=== PATIENT | female | born 1995 | race African-American/Black ===

== ENCOUNTER 2024-04-11 13:44 | Outpatient (AMB) | payer OTHER, SELFPAY ==
--- NOTE | 2024-04-11 13:51 | A.OFFPC_ITS ---
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 Hydrographer Required: No Is last menstrual period known: Yes Last menstrual period: 03/06/24 Post menopausal: No Patient : No Allergies No Known Allergies Allergy (Verified 04/11/24 13:53) Tobacco use date assessed: 04/11/24 Dental Screening Dental Screen Date: 04/11/24 Did you have a dental visit in the last 12 months?: Yes Did you have a dental problem in the last 6 months where you did not have access to dental care?: No Was dental information given to patient?: Patient has dentist HPI HPI Comments History of Present Illness Details This is a 28-year-old female presenting to [facility]. She says it has been years since she had a primary care provider. Her name is bess Cordova. Patient is from [facility] and moved to the [facility] in 2012. Her sisters and her parents are also in the [facility]. She relocated from [place] to [place] in January. She bought a house with her partner in January. They have 3 children ages 8, 6 and 3 years. She is currently . She took a home test which was positive. She went to [facility] due to pelvic pain. They said her hCG level was rising. Patient says they did not ultrasound. She saw her OBGYN at [facility] after this, and she has a another follow up scheduled 04/19/2024. The pelvic pain subsided. She denies vaginal bleeding. She started to cry when she was talking about this. She tells me that she recently discovered that her partner who is the father of her 3 other children is cheating on her. They have been together since she was 12 years old. She is unsure if she is going to keep the . Patient recently had foot surgery (Dr. Rebolledo at [facility]), and while she is recovering from surgery and moving into the new house she had her 3 children go back to [facility]. She is bringing them back to the [place] at the end of April. Patient says since she was a kid she has had a problem with pain from her left lower back and buttock radiating all the way down her leg. She describes it as severe and characterizes it as nerve pain. It comes and goes. If she has the pain it feels better to apply tight pressure around her leg and keep her knee bent slightly when she is walking. When she has the pain it feels worse when she walks. It feels better if she stops and rests. There is no history of trauma. The patient went to the ER for this 1 time, and they did not ultrasound which was negative for DVT. No swelling or redness or history of clots. She denies numbness or tingling in her legs, weakness in her legs or loss of bowel or bladder control. She used to have a therapist. She lost her brother in 2019 because of a motor vehicle accident. She has a lot going on in her head right now. She is interested in therapy again. Her depression screening is positive. ROS: Constitutional: No unexplained weight loss, fever, chills or night sweats. Neurologic: No unilateral weakness, ataxia, numbness or tingling in the extremities. Musculoskeletal: see HPI Psychiatric: No SI/HI. Physical exam: Constitutional: Alert, in no distress. Neck: Supple, Full range of motion. No lymphadenopathy. No palpable thyroid masses. Respiratory: Clear to auscultation. Cardiovascular: S1 S2 regular. No murmurs Neurologic: No focal neurological deficits. Abdomen: Soft, nontender, no palpable masses. Musculoskeletal: Patient has mild left leg pain with the straight leg raise. She also has pain that radiates down her left leg with lumbar flexion. Lower extremity strength 5/5, symmetric patellar reflexes, no foot drops, normal gait. Full range of motion of the lumbar spine. No midline spinal tenderness. Extremities: Warm and well perfused. No clubbing, cyanosis or edema. 3+ peripheral pulses bilaterally. Psychiatric: Cooperative, tearful [facility] Medical History (Updated 04/11/24 @ 16:17 by ANN Avalos) Low back pain radiating to left leg Symptoms of depression Back ache IBS (irritable bowel syndrome) Anxiety Surgical History (Updated 04/11/24 @ 16:11 by ANN Avalos) History of liposuction of abdomen H/O foot surgery Family History (Updated 04/11/24 @ 14:06 by Daniela Cummings) Family/Other FH: mental illness Maternal Grandfather Asthma Mother High blood pressure Thyroid disorder Father High blood pressure Diabetes Thyroid disorder Paternal Grandmother High blood pressure High cholesterol Social History Housing: House Patient Tobacco Use Status: Never used Tobacco e-Cigarette/Vaping Use: Never Used Second Hand Smoke Exposure: No service: No Current occupational status: employed 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 1. Little interest or pleasure in doing things: more than half the days 2. Feeling down, depressed, or hopeless: more than half the days 3. Trouble falling or staying asleep, or sleeping too much: more than half the days 4. Feeling tired or having little energy: nearly every day 5. Poor appetite or overeating: nearly every day 6. Feeling bad about yourself - or that you are a failure or have let yourself or your family down: nearly every day 7. Trouble concentrating on things, such as reading the newspaper or watching television: nearly every day 8. Moving or speaking so slowly that other people could have noticed. Or the opposite - being so fidgety or restless that you have been moving around a lot more than usual: several days 9. Thoughts that you would be better off or of hurting yourself in some way: several days Total score: 20 Source: Developed by Drs. Stef Toussaint, Bhavna Jim, Osman Austin and colleagues, with an educational pamella from [employer]. Thrive Questionnaire Date Thrive assessed: 04/11/24 I am a: Patient What is your living situation today?: I have a steady place to live Within the past 12 months, did the food you bought not last and you didn't have the money to get more?: Never true Within the past 12 months, did you worry whether your food would run out before you got money to buy more?: Sometimes True Do you have trouble paying for medicines?: No Do you have trouble getting transportation to medical appointments?: No Do you have trouble paying your heating and electricity bill?: Yes Do you have trouble taking care of your child, family member or friend?: No Do you have trouble with day-to-day activities such as bathing, preparing meals, shopping, managing finances, etc.?: No Are you currently unemployed and looking for a job?: No Are you interested in more education?: Yes Please select the resources that you would like help with: Education Currently or been in a relationship where the following occur: No concerns reported THRIVE Score: 2 AUDIT C Alcohol Use Questionnaire (AUDIT-C) 1. How often do you have a drink containing alcohol?: Monthly or less 2. How many drinks containing alcohol do you have on a typical day when you are drinking?: 1 or 2 3. How often do you have six or more drinks on one occasion?: Less than monthly Total Score: 2 Score Reviewed/Action Taken: Yes MELODIE-7 AMB Questionnaire MELODIE-7 Date MELODIE - 7 assessed: 04/11/24 Feeling nervous, anxious, or on edge: 2 = More than half the days Not being able to stop or control worryin = More than half the days Worrying too much about different things: 2 = More than half the days Trouble relaxin = Nearly every day Being so restless that it is hard to sit still: 2 = More than half the days Becoming easily annoyed or irritable: 2 = More than half the days Feeling afraid as if something awful might happen: 1 = Several days Total MELODIE-7 score (0-4 normal; 5-9 mild; 10-14 moderate; 15-21 severe): 14 Source: Developed by Drs. Stef Toussaint, Bhavna Jim, Osman Austin and colleagues, with an educational pamella from [employer]. MELODIE-7 Assessment Billing MELODIE-7 Assessment Tool: MELODIE-7 Assessment 90114 ACT Questionnaire In the past 4 weeks, how much of the time did your asthma keep you from getting as much done at work, school or at home?: All of the time During the past 4 weeks, how often have you had shortness of breath?: Once a day During the past 4 weeks, how often did your asthma symptoms wake you up at night or earlier than usual in the morning?: 2-3 nights a week During the past 4 weeks, how often have you had to use your rescue inhaler or nebulizer medication?: More than 3 times per day How would you rate your asthma control during the past 4 weeks?: Poorly controlled Score: 8 Physical exam (Primary Care) Vital Signs: Last Vital Signs Temp 98.5 F 04/11/24 14:00 Pulse 76 04/11/24 14:00 Resp 16 04/11/24 14:00 BP 102/58 L 04/11/24 14:00 Pulse Ox 98 04/11/24 14:00 Oxygen Delivery Method Room Air 04/11/24 14:00 BMI result Body Mass Index 31.4 Tobacco/Smoking Status: Tobacco use Status Tobacco use date assessed 04/11/24 04/11/24 13:57 Patient Tobacco Use Status Never used Tobacco 04/11/24 13:57 e-Cigarette/Vaping Use Never Used 04/11/24 13:57 PHQ-9: PHQ-9 Score PHQ-9: Total score 20 04/11/24 14:23 Thrive Assessment: Date of Thrive Assessment Date Thrive assessed 04/11/24 04/11/24 14:09 Currently or been in a relationship where the following occur: No concerns reported Assessment and Plan Assessment & Plan (1) : Code(s): Z34.90 - Encounter for supervision of normal , unspecified, unspecified trimester Plan: Requested records from [facility]. Patient has a follow up with her OBGYN at [facility] on 04/19/2024. (2) Low back pain radiating to left leg: Code(s): M54.50 - Low back pain, unspecified; M79.605 - Pain in left leg Plan: Defer x-ray at this time due to . We will proceed with trial of physical therapy for suspected sciatica. She can take Tylenol as needed for pain but she would minimize any medications during . We can discuss MRI if she does not respond to physical therapy and she wants to proceed with this, but it may be more reasonable to defer this until after . (3) Symptoms of depression: Code(s): R45.89 - Other symptoms and signs involving emotional state Plan: Patient is referred to behavioral health for therapy. (4) Anxiety: Code(s): F41.9 - Anxiety disorder, unspecified Plan: Patient referred to behavioral health for anxiety. Plan She will have fasting lab work completed and follow up in April for a physical exam before she leaves the country. Orders: Orders Complete Blood Count no Diff Today F41.9 - Anxiety disorder, unspecified, Z13.6 - Encounter for screening for cardiovascular disorders TSH reflex Free T4 Today F41.9 - Anxiety disorder, unspecified, Z13.6 - Encounter for screening for cardiovascular disorders Lipid Panel Today E78.5 - Hyperlipidemia, unspecified, F41.9 - Anxiety disorder, unspecified, Z13.6 - Encounter for screening for cardiovascular disorders Comprehensive Met. Panel Today F41.9 - Anxiety disorder, unspecified, Z13.6 - Encounter for screening for cardiovascular disorders PT Evaluation and Treatment Today M54.50 - Low back pain, unspecified, M79.605 - Pain in left leg Referrals Psychology Referral F41.9 - Anxiety disorder, unspecified, R45.89 - Other symptoms and signs involving emotional state Coding Level of Care Code New Pt Level 4 (55725) Complex EM visit Add On G2211 Diagnoses Z34.90 Low back pain radiating to left leg M54.50; M79.605 Symptoms of depression R45.89 Anxiety F41.9 Additional Codes MELODIE-7 Assessment Billing - MELODIE-7 Assessment Tool: MELODIE-7 Assessment 66830 ([id number])
[2024-04-11 14:00] VITALS: BP 102/58; PULSE 76; RESP 16; TEMP 36.9; O2SAT 98; BMI 31.4
== END 2024-04-11 14:48 | disposition home or self-care (01) ==
PROVIDERS: PCP Physician Assistant Medical; Visit Provider Physician Assistant Medical
DX: Z34.90 Encounter for supervision of normal pregnancy, unspecified, unspecified trimester (principal); M54.50 Low back pain, unspecified; M79.605 Pain in left leg; R45.89 Other symptoms and signs involving emotional state; F41.9 Anxiety disorder, unspecified

== ENCOUNTER → 2024-04-11 13:44 | Outpatient (BNVA) | payer OTHER, SELFPAY | PROVIDERS: PCP Physician Assistant Medical; Visit Provider Physician Assistant Medical | DX: O99.891 Other specified diseases and conditions complicating pregnancy (principal); M54.50 Low back pain, unspecified; M79.605 Pain in left leg; O26.899 Other specified pregnancy related conditions, unspecified trimester; R45.89 Other symptoms and signs involving emotional state; O99.340 Other mental disorders complicating pregnancy, unspecified trimester; F41.9 Anxiety disorder, unspecified; Z3A.00 Weeks of gestation of pregnancy not specified | CPT/HCPCS: 96127; 96160; 99202 ==

== ENCOUNTER 2024-05-02 08:35 | Outpatient (AMB) | payer OTHER, SELFPAY ==
--- NOTE | 2024-05-02 08:45 | MHC.PC.OV ---
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 She is starting therapy with [email or web address] next Monday. She is doing a little better. She ended up terminating her because of the situation with her partner. She got a job for [employer] that she is going to be starting soon. She is taking a trip out of the country to get her children. Things with her partner are still difficult, but they are not openly arguing. She endorses transient thoughts of self-harm. This happens once a week. She has no plan to harm herself or history of self-harm. She always thinks about her kids and her sister, and she would never hurt herself because of them. She is starting physical therapy for her back pain when she returns from her trip. She declines influenza vaccine. Patient is referred for an eye exam. She has difficulty reading up close which has been going on for years. She does not have glasses or contacts. She says her eyes get fatigued which triggers headaches. The patient endorses acid reflux and vomiting for the past 5-10 years. This happens every day. Coffee makes it worse. She eats a lot of spicy food. It also is worse when she lays down at night. She tried Tums last week which helped for a few hours. She drinks 2 alcoholic beverages once or twice per month. She does not smoke. There is no family history of gastrointestinal malignancy. She denies hematemesis, melena, diarrhea, unexplained weight loss and decreased appetite. ROS: Constitutional: No unexplained weight loss, fever, chills or night sweats. Eyes: No eye pain, double vision, vision loss, eye redness or discharge. ENT: No hearing loss, sneezing, congestion, runny nose or sore throat. Respiratory: No shortness of breath, cough or sputum production. Cardiovascular: No chest pain, chest pressure or chest discomfort. No palpitations or pedal edema. Gastrointestinal: see HPI Genitourinary: No dysuria, hematuria, urinary frequency. Neurologic: No dizziness, syncope, unilateral weakness, ataxia, numbness or tingling in the extremities. Musculoskeletal: No muscle pain, back pain, joint pain or swelling. Hematologic/Lymphatics: No bleeding or bruising. No painful lymph nodes. Skin: No rash or itching. Endocrine: No cold or heat intolerance. No polyuria or polydipsia. Psychiatric: see HPI Physical exam: Constitutional: Alert, in no distress. Head: Normocephalic. Eyes: Pupils are equal, round and reactive to light. Extraocular muscles intact. Ear, Nose and Throat: Canals clear. TMs normal. Normal nasal mucosa. No nasal discharge. No oral lesions. Neck: Supple, Full range of motion. No lymphadenopathy. No palpable thyroid masses. Respiratory: Clear to auscultation. Cardiovascular: S1 S2 regular. No murmurs. Gastrointestinal: Abdomen soft, mild epigastric tenderness, non-distended. Normal bowel sounds. No palpable masses. No rebound or guarding. Genitourinary: No costovertebral angle tenderness. Neurologic: No focal neurological deficits. Symmetric patellar reflexes. Moves all extremities spontaneously. Sensation intact bilaterally. Skin: No rashes or lesions. Musculoskeletal: No gross deformities. Normal range of motion. Extremities: Warm and well perfused. No clubbing, cyanosis or edema. 3+ peripheral pulses bilaterally. Psychiatric: Normal mood and affect [facility] Medical History (Updated 05/02/24 @ 09:27 by ANN Avalos) Routine physical examination Vomiting GERD (gastroesophageal reflux disease) Low back pain radiating to left leg Symptoms of depression Back ache IBS (irritable bowel syndrome) Anxiety Surgical History (Updated 04/11/24 @ 16:11 by ANN Avalos) History of liposuction of abdomen H/O foot surgery Family History (Updated 05/02/24 @ 09:05 by ANN Avalos) Family/Other FH: mental illness Maternal Grandfather Asthma Mother High blood pressure Thyroid disorder Father High blood pressure Diabetes Thyroid disorder Testicular cancer Paternal Grandmother High blood pressure High cholesterol Social History Housing: House Patient Tobacco Use Status: Never used Tobacco e-Cigarette/Vaping Use: Never Used Second Hand Smoke Exposure: No service: No Current occupational status: employed Current occupation: [employer] Current occupational exposures/hazards: No Cognitive needs: No Hearing needs: No Vision needs: No Questionnaire PHQ-9 Over the last 2 weeks, how often have you been bothered by any of the following problems? 1. Little interest or pleasure in doing things: more than half the days 2. Feeling down, depressed, or hopeless: more than half the days 3. Trouble falling or staying asleep, or sleeping too much: several days 4. Feeling tired or having little energy: more than half the days 5. Poor appetite or overeating: nearly every day 6. Feeling bad about yourself - or that you are a failure or have let yourself or your family down: more than half the days 7. Trouble concentrating on things, such as reading the newspaper or watching television: several days 8. Moving or speaking so slowly that other people could have noticed. Or the opposite - being so fidgety or restless that you have been moving around a lot more than usual: more than half the days 9. Thoughts that you would be better off or of hurting yourself in some way: several days Total score: 16 Depression Screening Interpretation: Positive Depression Screening Done: Yes 57535 - PHQ-9 Billing: Yes Source: Developed by Drs. Stef Toussaint, Bhavna Jim, Osman Austin and colleagues, with an educational pamella from [email or web address]. Thrive Questionnaire Date Thrive assessed: 04/11/24 I am a: Patient What is your living situation today?: I have a steady place to live Within the past 12 months, did the food you bought not last and you didn't have the money to get more?: Sometimes True Within the past 12 months, did you worry whether your food would run out before you got money to buy more?: Sometimes True Do you have trouble paying for medicines?: No Do you have trouble getting transportation to medical appointments?: No Do you have trouble paying your heating and electricity bill?: No Do you have trouble taking care of your child, family member or friend?: No Do you have trouble with day-to-day activities such as bathing, preparing meals, shopping, managing finances, etc.?: No Are you currently unemployed and looking for a job?: No Are you interested in more education?: Yes Please select the resources that you would like help with: Childcare Currently or been in a relationship where the following occur: Controlled Emotionally THRIVE Score: 3 AUDIT C Alcohol Use Questionnaire (AUDIT-C) 1. How often do you have a drink containing alcohol?: Monthly or less 2. How many drinks containing alcohol do you have on a typical day when you are drinking?: 1 or 2 3. How often do you have six or more drinks on one occasion?: Less than monthly Total Score: 2 MELODIE-7 AMB Questionnaire MELODIE-7 Date MELODIE - 7 assessed: 04/11/24 Feeling nervous, anxious, or on edge: 2 = More than half the days Not being able to stop or control worryin = More than half the days Worrying too much about different things: 2 = More than half the days Trouble relaxin = More than half the days Being so restless that it is hard to sit still: 2 = More than half the days Becoming easily annoyed or irritable: 2 = More than half the days Feeling afraid as if something awful might happen: 2 = More than half the days Total MELODIE-7 score (0-4 normal; 5-9 mild; 10-14 moderate; 15-21 severe): 14 Source: Developed by Drs. Stef Toussaint, Bhavna Jim, Osman Austin and colleagues, with an educational pamella from [email or web address]. MELODIE-7 Assessment Billing MELODIE-7 Assessment Tool: MELODIE-7 Assessment 40315 Physical exam (Primary Care) Vital Signs: Last Vital Signs Pulse 71 05/02/24 08:46 BP 98/62 05/02/24 08:46 Pulse Ox 99 05/02/24 08:46 Oxygen Delivery Method Room Air 05/02/24 08:46 BMI result Body Mass Index 32.1 Tobacco/Smoking Status: Tobacco use Status Tobacco use date assessed 04/11/24 05/02/24 08:48 Patient Tobacco Use Status Never used Tobacco 05/02/24 08:48 e-Cigarette/Vaping Use Never Used 05/02/24 08:48 PHQ-9: PHQ-9 Score PHQ-9: Total score 16 05/02/24 08:48 Depression Screening Interpretation: Positive Thrive Assessment: Date of Thrive Assessment Date Thrive assessed 04/11/24 05/02/24 08:48 Currently or been in a relationship where the following occur: Controlled Emotionally Coding Level of Care Code Est Pt Level 4 (72754) Est Pt Prev Care 18-39y(52400) Diagnoses Routine physical examination Z00.00 GERD (gastroesophageal reflux disease) K21.9 Vomiting R11.10 Low back pain radiating to left leg M54.50; M79.605 Symptoms of depression R45.89 Anxiety F41.9 Additional Codes MELODIE-7 Assessment Billing - MELODIE-7 Assessment Tool: MELODIE-7 Assessment 71902 ([id number]) Assessment & Plan Assessment & Plan (1) Routine physical examination: Code(s): Z00.00 - Encounter for general adult medical examination without abnormal findings Category: Medical Plan: Patient is seen today for a routine physical. As part of this visit we reviewed the following issues, which are considered and essential part of preventative health in this age group: - Breast Cancer screening - Annual Director Pharmaceutical exam - Blood pressure screening - Cholesterol screening - Osteoporosis prevention including calcium/vitamin D intake, weight bearing exercise & smoking cessation - Nutritional and exercise counseling - Counseling of injury prevention including fire prevention, smoke alarms and seat belt usage - Screening for depression - Prevention of and/or testing for infectious diseases - Education about skin cancer - Recommendations about immunizations - Recommendation of an eye exam - Screening for substance abuse (2) GERD (gastroesophageal reflux disease): Code(s): K21.9 - Gastro-esophageal reflux disease without esophagitis Category: Medical Plan: Avoid spicy and acidic foods. Avoid eating close to bedtime. Avoid alcohol and NSAIDs. Trial of omeprazole 20 mg every morning for 2 weeks. Refer to Gastroenterology. (3) Vomiting: Code(s): R11.10 - Vomiting, unspecified Category: Medical Plan: See #2. Check labs. Abdominal ultrasound ordered to rule out gallstones. Refer to Gastroenterology. (4) Low back pain radiating to left leg: Code(s): M54.50 - Low back pain, unspecified; M79.605 - Pain in left leg Category: Medical Plan: She will start physical therapy when she returns from her trip and follow up in 6 weeks for re-evaluation. (5) Symptoms of depression: Code(s): R45.89 - Other symptoms and signs involving emotional state Category: Medical Plan: She continues to decline medications. She is starting therapy next Monday with [facility]. (6) Anxiety: Code(s): F41.9 - Anxiety disorder, unspecified Category: Medical Plan: See #5. Plan Follow up in 6 weeks to recheck back pain, depression and gastro symptoms. Orders: Orders US abdomen complete Today R10.816 - Epigastric abdominal tenderness, R11.10 - Vomiting, unspecified Lipase Today K21.9 - Gastro-esophageal reflux disease without esophagitis, R11.10 - Vomiting, unspecified Referrals Optometry Referral Z01.00 - Encounter for examination of eyes and vision without abnormal findings Gastroenterology Referral K21.9 - Gastro-esophageal reflux disease without esophagitis, R11.10 - Vomiting, unspecified Medications: New omeprazole magnesium (Prilosec OTC) 20 mg PO DAILY 14 tabs 0RF
[2024-05-02 08:46] VITALS: BP 98/62; PULSE 71; O2SAT 99; BMI 32.1
== END 2024-05-02 09:22 | disposition home or self-care (01) ==
PROVIDERS: PCP Physician Assistant Medical; Visit Provider Physician Assistant Medical
DX: Z00.00 Encounter for general adult medical examination without abnormal findings (principal); K21.9 Gastro-esophageal reflux disease without esophagitis; R11.10 Vomiting, unspecified; M54.50 Low back pain, unspecified; M79.605 Pain in left leg; R45.89 Other symptoms and signs involving emotional state; F41.9 Anxiety disorder, unspecified

== ENCOUNTER → 2024-05-02 08:35 | Outpatient (BNVA) | payer OTHER, SELFPAY | PROVIDERS: PCP Physician Assistant Medical; Visit Provider Physician Assistant Medical | DX: Z00.00 Encounter for general adult medical examination without abnormal findings (principal); K21.9 Gastro-esophageal reflux disease without esophagitis; R11.10 Vomiting, unspecified; M54.50 Low back pain, unspecified; M79.605 Pain in left leg; R45.89 Other symptoms and signs involving emotional state; F41.9 Anxiety disorder, unspecified | CPT/HCPCS: 96127; 99212; 99395 ==

== ENCOUNTER 2024-05-09 08:14 | Outpatient (REF) | payer OTHER, SELFPAY ==
[2024-05-09 10:18] LABS: Hematocrit 36.8 % (37.0-47.0); Hemoglobin 12.3 g/dl (12.0-16.0); Mean Corpuscular HGB Conc 33.4 g/dl (31.0-35.0); Mean Corpuscular Hemoglobin 27.6 pg (27.0-33.0); Mean Corpuscular Volume 82.7 fL (80.0-98.0); Mean Platelet Volume 10.8 fL (9.4-12.3); Platelet Count 334 X10*3/uL (160-400); Red Blood Count 4.45 X10*6/uL (4.20-5.50); Red Cell Distribution Width 13.1 % (11.0-16.0)
[2024-05-09 10:47] LABS: Alanine Aminotransferase 14 U/L (0-31); Albumin Level 4.2 g/dL (3.5-5.0); Alkaline Phosphatase 38 U/L (39-117); Anion Gap 10 (12-20); Aspartate Amino Transferase 24 U/L (5-31); Bilirubin Total 0.4 mg/dL (0.0-1.0); Blood Urea Nitrogen 7 mg/dL (9-16); Calcium 9.5 mg/dL (8.4-10.2); Carbon Dioxide 27 mmol/L (22-29); Chloride 106 mmol/L (96-108); Cholesterol 205 mg/dL (<200); Estimated Glomerular Filt Rate > 60; Glucose Random 89 mg/dL (60-115); HDL Cholesterol 59 mg/dL (>40); LDL Cholesterol Calculated 124 mg/dL (<100); Lipase 16 U/L (8-78); Potassium 3.9 mmol/L (3.3-5.1); Sodium 139 mmol/L (135-145); Total Protein 7.1 g/dL (6.5-8.0); Triglycerides 112 mg/dL (<150)
[2024-05-09 11:06] LABS: TSH reflex Free T4 0.86 uIU/mL (0.32-4.0)
== END 2024-05-09 08:15 | disposition home or self-care (01) ==
LOC: HO.HMGCLDS 08:14
PROVIDERS: PCP Physician Assistant Medical; Visit Provider Physician Assistant Medical
DX: Z13.6 Encounter for screening for cardiovascular disorders (principal); F41.9 Anxiety disorder, unspecified; E78.5 Hyperlipidemia, unspecified; K21.9 Gastro-esophageal reflux disease without esophagitis; R11.10 Vomiting, unspecified
CPT/HCPCS: 36415; 80053; 80061; 83690; 84443; 85027

== ENCOUNTER 2024-05-31 09:53 | Outpatient (REF) | payer OTHER, SELFPAY ==
--- NOTE | ~2024-05-31 | US_ITS ---
EXAMINATION: US ABDOMEN COMPLETE CLINICAL INFORMATION: Vomiting, unspecified. COMPARISON: None available. TECHNIQUE: Real-time imaging of the abdominal viscera. FINDINGS: PANCREAS: Normal. ABDOMINAL AORTA: The proximal, mid, and distal segments are normal in caliber. INFERIOR VENA CAVA: Visualized portions are normal. LIVER: Normal. The liver is normal in size. The liver contour is normal. Parenchymal echogenicity is normal. No focal hepatic lesion. There is no intrahepatic biliary duct dilatation seen. GALLBLADDER: The gallbladder is physiologically distended. Multiple mobile gallstones are present. No evidence of gallbladder wall thickening or pericholecystic fluid. COMMON BILE DUCT: Normal in caliber measuring 0.24 cm in diameter. RIGHT KIDNEY: Normal. No hydronephrosis. No renal calculi or focal parenchymal lesions. The kidney measures 9.0 cm in maximum dimension. LEFT KIDNEY: Normal. No hydronephrosis. No renal calculi or focal parenchymal lesions. The kidney measures 8.6 cm in maximum dimension. SPLEEN: Normal. The spleen measures 7.3 cm in maximum dimension. FREE FLUID: None. US/US abdomen complete IMPRESSION: 1. Cholelithiasis without ultrasound evidence of acute cholecystitis. 2. Ultrasound otherwise normal. Electronically signed by: Emilia Reeves MD 07/07/2024 11:18 AM JAYLIN
== END 2024-05-31 09:54 | disposition home or self-care (01) ==
LOC: HO.HMGCX 09:53
PROVIDERS: PCP Physician Assistant Medical; Visit Provider Physician Assistant Medical
DX: R11.10 Vomiting, unspecified (principal); R10.816 Epigastric abdominal tenderness
CPT/HCPCS: 76700

== ENCOUNTER 2024-07-18 10:00 | Outpatient (RCR) | payer OTHER, SELFPAY ==
--- NOTE | 2024-05-31 14:59 | MHC.PT.EP ---
[facility] [place] Office [place] Office [place] Office [address] Ted Sharma [address] [phone] F: [phone] F: [phone] F: [phone] F: [phone] Physical Therapy Plan of Care Date of Evaluation: 05/31/24 Date of Surgery: Diagnosis: low back pain radiating to L leg. Assessment: Patient is a 28 year old R handed female who presents with s/s consistent with low back pain. She does not work but is starting a job next Monday. Patient past medical history includes R foot fracture that may have impacted back pain 1 year ago. Current impairments include pain, posture, ROM, strength, activity tolerance and functional mobility. Functional limitations include decreased ability to walk, stand, bend, sleep, lift, carry, drive and sit for prolonged periods of time. Patient is motivated with good rehab potential. Skilled PT will address impairments and functional limitations in order to achieve goals. Frequency and Duration: The patient will be seen 1x/week for 6 weeks Short Term Goals: I with HEP - 2 weeks AROM rotation 100% and pain free - 3 weeks Symmetrical gait mechanics, (-) trendelenberg - 3 weeks Symmetrical iliac crest positions - 3 weeks Curing Supervisor Goals: Max pain with ADLs 2/10 - 6 weeks Oswestry 14% or less -6 weeks Hip strength 4+/5 grossly - 6 weeks Treatment Plan: Modalities to reduce pain, spasms and effusion. Manual therapy to restore motion and function. Therapeutic exercise to improve strength and flexibility. Neuromuscular re-education for posture and balance. Therapeutic activities to return to functional activities of daily living. Electronically signed by: Jose Daniel Saldana, PT Please sign and return to therapist. Thank you for your referral.
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
== END 2025-01-24 09:41 | disposition home or self-care (01) ==
LOC: HO.PTCHIC 10:00
PROVIDERS: PCP Physician Assistant Medical; Visit Provider Physician Assistant Medical
DX: M54.50 Low back pain, unspecified (principal); M79.605 Pain in left leg
CPT/HCPCS: 97110; 97140; 97161

== ENCOUNTER 2024-07-30 10:42 | Outpatient (AMB) | payer OTHER, SELFPAY ==
--- NOTE | 2024-07-30 10:43 | MHC.OFFVIS ---
Intake Visit Reasons: Calculus of GB Intake Note: Patient referred by Carolina YUEN for calculus of gallbladder. Patient c/o: RUQ pain. On and off pain that started about 1yr. Nausea, diarrhea. Cell Inspector Required: No Accompanied by: Self / Same As Patient Allergies No Known Allergies Allergy (Verified 07/30/24 10:48) HPI Comments Details: Patient presents with a longstanding history of biliary colic. She has symptoms of epigastric right upper quadrant pain radiating around to her back. Recent workup including sonogram demonstrates significant cholelithiasis. Patient was mother of 3. She otherwise tolerating a diet. She has regular bowel habits. She has never been jaundiced before. She occasionally has associated nausea and vomiting when abdominal symptoms come on. Chart was reviewed and patient evaluated [facility] Medical History Cholelithiases Routine physical examination Vomiting GERD (gastroesophageal reflux disease) Low back pain radiating to left leg Symptoms of depression Back ache IBS (irritable bowel syndrome) Anxiety Surgical History History of liposuction of abdomen H/O foot surgery Family History Family/Other FH: mental illness Maternal Grandfather Asthma Mother High blood pressure Thyroid disorder Father High blood pressure Diabetes Thyroid disorder Testicular cancer Paternal Grandmother High blood pressure High cholesterol Social History Housing: House Patient Tobacco Use Status: Never used Tobacco e-Cigarette/Vaping Use: Never Used Second Hand Smoke Exposure: No service: No Current occupational status: employed 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 Current occupational exposures/hazards: No Cognitive needs: No Hearing needs: No Vision needs: No Physical Exam Eyes Other: Anicteric Chest Other: Chest breath sounds bilaterally, HS 1 in 2 GI Other: Abdomen moderately corpulent, Striae, soft, benign Assessment & Plan Assessment & Plan (1) Recurrent biliary colic: Code(s): K80.50 - Calculus of bile duct without cholangitis or cholecystitis without obstruction Category: Surgical (2) Cholelithiases: Code(s): K80.20 - Calculus of gallbladder without cholecystitis without obstruction Category: Surgical Plan Risks, benefits, and alternatives laparoscopic possible open cholecystectomy reviewed with the patient and included but not limited to bleeding, infection, recurrence of symptoms, numbness, pain, scarring, bowel or bile duct injury or leak and the patient wishes to proceed. All questions answered. Arrangements were made for this on a day which is convenient for her. Coding Level of Care Code New Pt Level 5 (34163) Diagnoses Recurrent biliary colic K80.50 Cholelithiases K80.20
== END 2024-07-30 10:53 | disposition home or self-care (01) ==
PROVIDERS: PCP Physician Assistant Medical; Referring Provider Physician Assistant Medical; Visit Provider Surgery
DX: K80.50 Calculus of bile duct without cholangitis or cholecystitis without obstruction (principal); K80.20 Calculus of gallbladder without cholecystitis without obstruction
CPT/HCPCS: 99204

== ENCOUNTER → 2024-07-30 10:42 | Outpatient (BNVA) | payer OTHER, SELFPAY | PROVIDERS: PCP Physician Assistant Medical; Referring Provider Physician Assistant Medical; Visit Provider Surgery | DX: K80.20 Calculus of gallbladder without cholecystitis without obstruction (principal); K80.50 Calculus of bile duct without cholangitis or cholecystitis without obstruction; R10.11 Right upper quadrant pain; R10.13 Epigastric pain | CPT/HCPCS: 99202 ==

== ENCOUNTER 2024-08-19 13:50 | Outpatient (AMB) | payer OTHER, SELFPAY ==
--- NOTE | 2024-08-19 13:58 | MHC.OFFVIS ---
Intake Visit Reasons: Pt concerns with upcoming lap terrence Intake Note: Patient scheduled today's appointment due to concerns with lap terrence surgery. Would like to know if there's other treatment options for gallstones. Lead Customer Service Representative Required: No Accompanied by: children Allergies No Known Allergies Allergy (Verified 08/19/24 13:58) HPI Comments Details: Patient was seen for laparoscopic cholecystectomy which is tentatively scheduled for 08/30/2024. Patient has a few questions regarding what happens post gallbladder removal. She is concerned that there would be no bile to help dye just fatty foods. I reassured her that the liver continues to make the bile and the gallbladder was only a booster dose. No other GI issues or complaints. She is still having right upper quadrant symptoms post meals. [facility] Medical History Cholelithiases Routine physical examination Vomiting GERD (gastroesophageal reflux disease) Low back pain radiating to left leg Symptoms of depression Back ache IBS (irritable bowel syndrome) Anxiety Surgical History History of liposuction of abdomen H/O foot surgery Family History Family/Other FH: mental illness Maternal Grandfather Asthma Mother High blood pressure Thyroid disorder Father High blood pressure Diabetes Thyroid disorder Testicular cancer Paternal Grandmother High blood pressure High cholesterol Social History Housing: House Patient Tobacco Use Status: Never used Tobacco e-Cigarette/Vaping Use: Never Used Second Hand Smoke Exposure: No service: No Current occupational status: employed 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 Assessment & Plan Assessment & Plan (1) Cholelithiases: Code(s): K80.20 - Calculus of gallbladder without cholecystitis without obstruction Category: Surgical (2) Recurrent biliary colic: Code(s): K80.50 - Calculus of bile duct without cholangitis or cholecystitis without obstruction Category: Surgical Plan All questions answered. Patient has been reassured. Her surgery as noted above is scheduled for next Monday. We will see her there or she has any further questions or concerns she can call the office or return. All questions answered. Coding Level of Care Code New Pt Level 4 (15987) Diagnoses Cholelithiases K80.20 Recurrent biliary colic K80.50
== END 2024-08-19 14:09 | disposition home or self-care (01) ==
PROVIDERS: PCP Physician Assistant Medical; Visit Provider Surgery
DX: K80.20 Calculus of gallbladder without cholecystitis without obstruction (principal); K80.50 Calculus of bile duct without cholangitis or cholecystitis without obstruction
CPT/HCPCS: 99214

== ENCOUNTER → 2024-08-19 13:50 | Outpatient (BNVA) | payer OTHER, SELFPAY | PROVIDERS: PCP Physician Assistant Medical; Visit Provider Surgery | DX: K80.20 Calculus of gallbladder without cholecystitis without obstruction (principal); K80.50 Calculus of bile duct without cholangitis or cholecystitis without obstruction | CPT/HCPCS: 99212 ==

== ENCOUNTER → 2024-08-30 08:02 | Outpatient (BNV) | payer OTHER, SELFPAY | PROVIDERS: PCP Physician Assistant Medical; Visit Provider Surgery | DX: Z90.49 Acquired absence of other specified parts of digestive tract (principal) | CPT/HCPCS: 47562; 99024; 99499 ==

== ENCOUNTER → 2024-08-30 08:02 | Outpatient (BNV) | payer OTHER, SELFPAY | PROVIDERS: PCP Physician Assistant Medical; Visit Provider Internal Medicine Critical Care Medicine | DX: K80.20 Calculus of gallbladder without cholecystitis without obstruction (principal); K21.9 Gastro-esophageal reflux disease without esophagitis; F41.9 Anxiety disorder, unspecified; R45.89 Other symptoms and signs involving emotional state | CPT/HCPCS: 99223 ==

== ENCOUNTER → 2024-08-30 14:03 | Outpatient (BNV) | payer OTHER, SELFPAY | PROVIDERS: PCP Physician Assistant Medical; Visit Provider Radiology Diagnostic Radiology | DX: R06.02 Shortness of breath (principal); J18.9 Pneumonia, unspecified organism | CPT/HCPCS: 71045 ==

== ENCOUNTER 2024-08-30 14:51 | Inpatient (IN) | payer OTHER, SELFPAY ==
[2024-08-28 12:43] VITALS: BMI 32.3
--- NOTE | 2024-08-29 11:57 | MHC.SHP ---
Pre-Procedural Eval Section A - 24 Hr Update-Section A only Date of Service: 08/30/24 The patient is an INPATIENT: No Changes since office visit: No Cold of Flu in the past 2 weeks, No New Medical Problems, No Changes in Medication and No Patient answered all questions Section B - Complete if H&P > 30 days Chief Complaint: Calculus of bile duct without cholangitis or terrence Allergies: Allergies Allergy/AdvReac Type Severity Reaction Status Date / Time No Known Allergies Allergy Verified 08/19/24 13:58 Review of Systems Sugical H&P ROS: Negative: Constitution, Cardiovascular, Respiratory, Neurological, Psychiatric, Hem-Onc, Allergic/Immunologic, Gastrointestinal, Genitourinary, Musculoskeletal, Integumentary, Endocrine and Eyes/Ears/Nose/Throat Exam Surgical H&P Exam: Normal: HEENT, Normal: Heart, Normal: Lungs, Normal: Extremities, Normal: Abdomen, Normal: Skin and Normal: Neurological Plan I have reviewed the history and physical and performed a pertinent physical examination on my patient. No changes have occurred unless specified. Time Spent With Patient Time: Total time managing care of this patient today ____ minutes.
[2024-08-30] VITALS (31 sets, daily range): BP systolic 102–131; BP diastolic 63–89; PULSE 58–90; RESP 14–21; TEMP 36.2–36.6; O2SAT 92–100; BMI 30.6
--- NOTE | ~2024-08-30 | XR_ITS ---
CLINICAL HISTORY: shortness of breath 1 view chest x-ray Comparison: CR/SR - XR CHEST 1V - 08/30/24 14:02 EST Findings: Persistent right upper lobe opacity appears more defined. No pleural effusion or pneumothorax. Heart size is normal. No acute fracture. IMPRESSION: Probable small infiltrate in the right upper lobe. This document has been electronically signed by: Guadalupe Doan DO on 08/30/2024 19:54:28
--- NOTE | ~2024-08-30 | XR_ITS ---
EXAMINATION: XR CHEST 1 VIEW HISTORY: post op SOB COMPARISON: There are no prior studies for comparison. FINDINGS: A single AP portable view of the chest performed at 2:02 PM is submitted. There is mild patchy opacity in the right upper lobe which may represent pneumonia or aspiration. The left lung is clear. There is no pleural effusion, pneumothorax, or pulmonary vascular congestion. The heart is normal in size. The bones are intact. XR/XR chest 1V IMPRESSION: Patchy opacity in the right upper lobe which may represent pneumonia or aspiration. Electronically signed by: Stef Chapin MD 08/30/2024 02:31 PM JAYLIN
[2024-08-30 09:28] LABS: UPreg QC Valid YES; Urine Pregnancy NEGATIVE (NEGATIVE)
[2024-08-30] MEDS: Lactated Ringers 1,000 ML 100 ML IVCONT ×2 (09:41→18:27)
--- NOTE | 2024-08-30 10:00 | HO.ANESPROP2 ---
Documented by User: Paige Arce NP 08/29/24 10:47 HPI - Anesthesia Eval Consult details Narrative: 28yo F for Cholecystectomy Laparoscopic,possible open PMFSH Active Problems Active Problems: All Active Problems Recurrent biliary colic (Acute) Cholelithiases (Acute) Routine physical examination (Acute) Vomiting (Acute) GERD (gastroesophageal reflux disease) (Acute) Low back pain radiating to left leg (Acute) Symptoms of depression (Acute) Anxiety (Acute) Past Medical History Medical History Cholelithiases Routine physical examination Vomiting GERD (gastroesophageal reflux disease) Low back pain radiating to left leg Symptoms of depression Back ache IBS (irritable bowel syndrome) Anxiety Family History Family History Family/Other FH: mental illness Maternal Grandfather Asthma Mother High blood pressure Thyroid disorder Father High blood pressure Diabetes Thyroid disorder Testicular cancer Paternal Grandmother High blood pressure High cholesterol Surgical History Surgical History History of liposuction of abdomen H/O foot surgery Social History Social History Housing: House Are you a primary group care worker to a significant other at home: No Do you presently have visiting nurse or other home services: No Patient Tobacco Use Status: Never used Tobacco e-Cigarette/Vaping Use: Never Used Second Hand Smoke Exposure: No Use of substances other than those prescribed or required for medical reasons: No Have you been hit, kicked, punched, or otherwise hurt by someone within the past year? 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 Current occupational exposures/hazards: No Cognitive needs: No Hearing needs: No Vision needs: No Meds Allergies Allergy/AdvReac Type Severity Reaction Status Date / Time No Known Allergies Allergy Verified 08/30/24 09:48 Exam Height,Weight and Vital Signs: Height 5 ft 1 in Weight 77.564 kg Assessment and Plan Assessment Anesthesia Assessment: Chart Reviewed Documented by User: Merry Baltazar DO 08/30/24 10:26 PMF Past Medical History Medical History Cholelithiases Routine physical examination Vomiting GERD (gastroesophageal reflux disease) Low back pain radiating to left leg Symptoms of depression Back ache IBS (irritable bowel syndrome) Anxiety Family History Family History Family/Other FH: mental illness Maternal Grandfather Asthma Mother High blood pressure Thyroid disorder Father High blood pressure Diabetes Thyroid disorder Testicular cancer Paternal Grandmother High blood pressure High cholesterol Family history of problems with anesthesia: No Surgical History Surgical History History of liposuction of abdomen H/O foot surgery History of Problems with Anesthesia: No Social History Social History Housing: House Are you a primary group care worker to a significant other at home: No Do you presently have visiting nurse or other home services: No Patient Tobacco Use Status: Never used Tobacco e-Cigarette/Vaping Use: Never Used Second Hand Smoke Exposure: No Use of substances other than those prescribed or required for medical reasons: No Have you been hit, kicked, punched, or otherwise hurt by someone within the past year? 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 Current occupational exposures/hazards: No Cognitive needs: No Hearing needs: No Vision needs: No Meds Allergies Allergy/AdvReac Type Severity Reaction Status Date / Time No Known Allergies Allergy Verified 08/30/24 09:48 Exam Exam Date and Time: 08/30/24 1000 Height,Weight and Vital Signs: Height 5 ft 1 in Weight 77.564 kg Vital Signs Temperature 97.2 F 08/30/24 09:20 Pulse Rate 64 08/30/24 09:20 Respiratory Rate 14 08/30/24 09:20 Blood Pressure 112/63 08/30/24 09:20 Pulse Oximetry 98 08/30/24 09:20 Oxygen Delivery Method Room Air 08/30/24 09:20 Temperature 97.2 F 08/30/24 09:20 Pulse Rate 64 08/30/24 09:20 Respiratory Rate 14 08/30/24 09:20 Blood Pressure 112/63 08/30/24 09:20 Pulse Oximetry 98 08/30/24 09:20 Oxygen Delivery Method Room Air 08/30/24 09:20 Airway Mallampati Class: II TM Dist: >3cm Neck ROM: Full Loose/Missing/Broken Teeth: No (patient denies any loose or broken teeth) Heart: S1S2 Lungs: CTAB Assessment and Plan Assessment Anesthesia Assessment: Anesthesia Plan Discussed and Chart Reviewed Final Anesthetic Review Family History of Problems with Anesthesia: No History of Problems with Anesthesia: No NPO: Yes ASA Class: II Final Preanesthetic Review: No Changes in Pt Med Stat, Meds/Allgs Chart Reviewed, Consent Obtained/Reviewed and Anes Risks/Benef Reviewed Patient Risk: Low Procedure Risk: Intermediate Anesthetic Plan Anesthetic Plan: GA and Agree w/ Assess. and Plan Disposition: Standard PACU
[2024-08-30] MEDS: ceFAZolin Sodium/Dextrose,Iso 2 GM/50 ML PIGGYBACK IV (10:40)
--- NOTE | 2024-08-30 11:23 | P.OP_ITS ---
Operative Note Operative Note Date of Service: 08/30/24 Narrative: Preoperative diagnosis: [] Symptomatic gallbladder Postop diagnosis: [] The same Procedure [] laparoscopic cholecystectomy Surgeon: [] Ra Registered Nurse: [] Christine Type of Anesthesia: [] General Indication for surgery: [] Gallbladder with omental adhesions to it. Moderately intrahepatic gallbladder. Findings: [] Patient brought to the operating room, placed on operative table supine position, after an adequate level of general anesthesia was induced, the patient's abdomen was prepped and draped in usual sterile fashion. Using a supraumbilical curvilinear incision, Kam technique was used to insufflate abdominal cavity to 15 mm of CO2. Upper midline and right subcostal ports were placed under direct laparoscopic view, and the patient placed in reverse Trendelenburg position, and tilted to the left. Findings were as noted above. Gallbladder was grasped using laparoscopic graspers and retracted superiorly and laterally. Soft omental adhesions were swept off the gallbladder. Next the hilum was approached. Common bile duct was identified and preserved throughout the procedure. Cystic artery and cystic duct were each identified, circumferentially skeletonized, traced directly into the gallbladder, and critical view obtained. Each was clipped proximally x2, distally x1, and transected . The gallbladder, which was moderately intrahepatic , was then cauterized from the gallbladder fossa using Bovie. Specimen placed in an Endo- Catch bag, a retrieved through the umbilical port. Abdominal cavity was copiously irrigated and secured hemostasis. All ports removed under direct laparoscopic view. Wounds were closed in the following manner; umbilical wound had its fascia reapproximated using interrupted 0 Vicryl sutures. Skin wounds were closed using subcuticular 4-0 Vicryl sutures followed by Steri-Strips and sterile dressings. Wounds were infiltrated 0.5% Marcaine at completion. Sponge, needle, and instrument counts reported correct. Patient tolerated the procedure well and emerged from anesthesia stable condition. EBL minimal
[2024-08-30] MEDS: fentaNYL citrate/PF 100 MCG/2 ML VIAL 50 MCG IVPUSH ×3 (11:45→16:05)
[2024-08-30] MEDS: oxyCODONE HCl Immed Release 5 MG TABLET PO (12:42)
[2024-08-30] MEDS: Furosemide 20 MG/2 ML VIAL 10 MG IVPUSH (14:29)
[2024-08-30 14:57] LABS: Base Excess Bedside Calculated -9 mmol/L (-3-3); Glucose, i-STAT 82 mg/dL (60-115); HCO3 Bedside Calculated 17 mmol/L (22-26); Hematocrit Bedside 30 %PCV (37-47); Hemoglobin Bedside 10.2 g/dL (12.0-16.0); Potassium Bedside 2.7 mmol/L (3.3-5.1); Sodium Bedside 146 mmol/L (135-145); TCO2 Bedside 18 mmol/L (24-29); pCO2 Bedside 34 mmhg (35-48); pH Bedside 7.31 (7.35-7.45)
[2024-08-30 15:03] LABS: Basophils Percent Auto 0.2 % (0-2); Hematocrit 38.8 % (37.0-47.0); Imm Gran Abs Auto 0.05 X10*3/uL (0.00-0.03); Imm Gran Pct Auto 0.4 % (0.0-0.4); Lymphocytes Absolute Auto 0.8 X10*3/uL (1.2-4.9); Lymphocytes Percent Auto 6.1 % (20-40); MANUAL DIFF FLAG SCAN; Mean Corpuscular HGB Conc 33.5 g/dl (31.0-35.0); Mean Corpuscular Hemoglobin 27.4 pg (27.0-33.0); Mean Corpuscular Volume 81.9 fL (80.0-98.0); Mean Platelet Volume 10.2 fL (9.4-12.3); Monocytes Absolute Auto 0.1 X10*3/uL (0.1-1.2); Neutrophils Absolute Auto 11.3 x10*3/uL (2.0-8.3); Neutrophils Percent Auto 92.3 % (45-73); Platelet Count 269 X10*3/uL (160-400); Red Blood Count 4.74 X10*6/uL (4.20-5.50); SCAN SMEAR FLAG 1; White Blood Count 12.3 X10*3/uL (4.8-10.8)
[2024-08-30 15:16] LABS: Anion Gap 15 (12-20); Carbon Dioxide 19 mmol/L (22-29); Chloride 108 mmol/L (96-108); Potassium 3.7 mmol/L (3.3-5.1); Sodium 138 mmol/L (135-145)
[2024-08-30 15:39] LABS: SLIDE REVIEW VERIFIED
[2024-08-30 15:43] LABS: Basophils Percent Auto 0.1 % (0-2); Hematocrit 39.5 % (37.0-47.0); Hemoglobin 13.2 g/dl (12.0-16.0); Imm Gran Abs Auto 0.04 X10*3/uL (0.00-0.03); Imm Gran Pct Auto 0.4 % (0.0-0.4); Lymphocytes Absolute Auto 0.7 X10*3/uL (1.2-4.9); MANUAL DIFF FLAG SCAN; Mean Corpuscular HGB Conc 33.4 g/dl (31.0-35.0); Mean Corpuscular Hemoglobin 27.2 pg (27.0-33.0); Mean Corpuscular Volume 81.3 fL (80.0-98.0); Monocytes Absolute Auto 0.1 X10*3/uL (0.1-1.2); Monocytes Percent Auto 0.9 % (2-11); Neutrophils Absolute Auto 10.3 x10*3/uL (2.0-8.3); Neutrophils Percent Auto 92.6 % (45-73); Platelet Count 272 X10*3/uL (160-400); Red Blood Count 4.86 X10*6/uL (4.20-5.50); White Blood Count 11.1 X10*3/uL (4.8-10.8)
[2024-08-30 15:50] LABS: D Dimer High Sensitivity 560 NG/ML
[2024-08-30 15:53] LABS: Lactic Acid 1.6 mmol/L (0.5-2.0)
[2024-08-30 16:00] LABS: Troponin-I High Sensitivity < 2.7 ng/L (<3.5-17.0)
[2024-08-30 16:01] LABS: Alanine Aminotransferase 40 U/L (0-31); Albumin Level 4.4 g/dL (3.5-5.0); Alkaline Phosphatase 50 U/L (39-117); Anion Gap 13 (12-20); Aspartate Amino Transferase 60 U/L (5-31); Bilirubin Total 0.2 mg/dL (0.0-1.0); Blood Urea Nitrogen 8 mg/dL (9-16); Calcium 8.9 mg/dL (8.4-10.2); Carbon Dioxide 23 mmol/L (22-29); Chloride 105 mmol/L (96-108); Creatinine Clr Calc Pharmacy 97.2; Estimated Glomerular Filt Rate > 60; Glucose Random 129 mg/dL (60-115); Magnesium 1.8 mg/dL (1.6-2.6); Phosphorus 2.2 mg/dL (2.7-4.5); Potassium 3.5 mmol/L (3.3-5.1); Sodium 137 mmol/L (135-145); Total Protein 8.3 g/dL (6.5-8.0)
[2024-08-30 16:02] LABS: SCAN SMEAR FLAG VERIFIED
--- NOTE | 2024-08-30 16:16 | PM.CCHP ---
History of Present Illness Date of Service: 08/30/24 Chief Complaint: Shortness of breaths 28 years old lady with past medical history of anxiety, depression, GERD, low backache was admitted to the hospital for an elective laparoscopic cholecystectomy. Patient underwent the procedure successfully postprocedure she received some fentanyl for pain control following which she slept for some time. When she woke up she had some cranberry juice and later on she developed shortness of breath with some blood-tinged sputum so MICU was consulted Review of Systems Review of Systems: Unable to obtain as patient is in distress [facility] Past Medical History Medical History Cholelithiases Routine physical examination Vomiting GERD (gastroesophageal reflux disease) Low back pain radiating to left leg Symptoms of depression Back ache IBS (irritable bowel syndrome) Anxiety Family History Family History Family/Other FH: mental illness Maternal Grandfather Asthma Mother High blood pressure Thyroid disorder Father High blood pressure Diabetes Thyroid disorder Testicular cancer Paternal Grandmother High blood pressure High cholesterol Surgical History Surgical History History of liposuction of abdomen H/O foot surgery Social History Social History Housing: House Are you a primary multi care technician to a significant other at home: No Do you presently have visiting nurse or other home services: No Comment: counts correct Patient Tobacco Use Status: Never used Tobacco e-Cigarette/Vaping Use: Never Used Second Hand Smoke Exposure: No Use of substances other than those prescribed or required for medical reasons: No Have you been hit, kicked, punched, or otherwise hurt by someone within the past year? 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 Current occupational exposures/hazards: No Cognitive needs: No Hearing needs: No Vision needs: No Meds Allergies Allergy/AdvReac Type Severity Reaction Status Date / Time No Known Allergies Allergy Verified 08/30/24 09:48 Active Medications: Current Medications Fentanyl (Fentanyl Citrate/Pf 100 Mcg/2 Ml Vial) 50 mcg IVPUSH Q5M PRN PRN Reason: Pain, Moderate to Severe (Pain Scale 4-10) Stop: 08/30/24 16:23 Last Admin: 08/30/24 16:05 Dose: 50 mcg Haloperidol Lactate (Haloperidol Lactate 5 Mg/Ml Vial) 1 mg IVPUSH ONCE PRN PRN Reason: intractable nausea Stop: 08/30/24 16:23 Lactated Ringer's (Lr) 1,000 mls @ 100 mls/hr IVCONT .Q10H ABRAHAM Last Admin: 08/30/24 09:41 Dose: 100 mls/hr Dexmedetomidine HCl (Precedex) 400 mcg in 100 mls @ 0 mls/hr IVCONT .Q0M ABRAHAM; Protocol Propofol (Diprivan) 1,000 mg in 100 mls @ 0 mls/hr IVCONT .Q0M ABRAHAM; Protocol Naloxone HCl (Naloxone Hcl 0.4 Mg/Ml Vial) 0.04 mg IVPUSH Q5M PRN PRN Reason: Excessive sedation or RR < 8 Physical Exam Vital Signs: Vital Signs: Last Vital Signs Temp 97.9 F 08/30/24 15:03 Pulse 62 08/30/24 16:05 Resp 16 08/30/24 16:05 BP 113/73 08/30/24 16:05 Pulse Ox 100 08/30/24 16:05 O2 Del Method High Flow Nasal C annula 08/30/24 16:05 O2 Flow Rate 40 08/30/24 16:05 FiO2 33 08/30/24 15:20 BMI result Body Mass Index 30.6 General: Young lady, poorly responsive, sitting up in the bed, dyspneic and in acute distress, ill appearing and tired appearing Nutritional Appearance: well nourished and overweight Eyes: appearance normal, both eyes and all related structures; Alignment and Position: alignment normal and position normal Neck: No lymphadenopathy, no thyromegaly Resp: bilateral air entry equal, lungs clear, no wheeze or rhonchi heard Cardio: Regular rate, regular rhythm; Heart sounds: S1 normal heart sound present and S2 normal heart sound present GI: soft, nontender, no guarding, no hepatosplenomegaly : bladder normal to inspection, bladder normal to palpation, no renal angle tenderness Skin: no rashes or lesions noted and elasticity normal Neuro: Drowsy, not following commands, moves all extremities Results Labs 08/30/24 15:32 08/30/24 15:31 Labs: Laboratory Results - last 24 hr 08/30/24 08/30/24 08/30/24 09:05 14:54 14:55 POC Hgb (Calc) 10.2 L POC Hct 30 L MCV 81.9 MCH 27.4 MCHC 33.5 RDW 13.0 Plt Count 269 MPV 10.2 Immature Gran % (Auto) 0.4 Neut % (Auto) 92.3 H Lymph % (Auto) 6.1 L [place] % (Auto) 1.0 L Eos % (Auto) 0.0 Baso % (Auto) 0.2 Lymph # (Auto) 0.8 L [place] # (Auto) 0.1 Eos # (Auto) 0.0 Baso # (Auto) 0.0 Abs Immat Gran (auto) 0.05 H Absolute Neuts (auto) 11.3 H Absolute Nucleated RBC 0.000 Nucleated RBC % (auto) 0.0 Smear Tech's Comments VERIFIED D-Dimer High Sensitivty POC Std Base Excess -9 L POC O2 Sat (Calc) TNP POC ABG Total CO2 18 L POC Capillary pH 7.31 L POC Capillary pCO2 34 L POC Cap HCO3 (Calc) 17 L POC Sodium 146 H POC Potassium 2.7 L* Anion Gap 15 Estim Creat Clear Calc Estimated GFR POC Glucose 82 Random Glucose Lactic Acid Calcium Phosphorus Magnesium Total Bilirubin AST ALT Alkaline Phosphatase Total Protein Albumin Urine Test NEGATIVE 08/30/24 08/30/24 15:31 15:32 POC Hgb (Calc) POC Hct MCV 81.3 MCH 27.2 MCHC 33.4 RDW 13.0 Plt Count 272 MPV 10.0 Immature Gran % (Auto) 0.4 Neut % (Auto) 92.6 H Lymph % (Auto) 6.0 L [place] % (Auto) 0.9 L Eos % (Auto) 0.0 Baso % (Auto) 0.1 Lymph # (Auto) 0.7 L [place] # (Auto) 0.1 Eos # (Auto) 0.0 Baso # (Auto) 0.0 Abs Immat Gran (auto) 0.04 H Absolute Neuts (auto) 10.3 H Absolute Nucleated RBC 0.000 Nucleated RBC % (auto) 0.0 Smear Tech's Comments D-Dimer High Sensitivty 560 POC Std Base Excess POC O2 Sat (Calc) POC ABG Total CO2 POC Capillary pH POC Capillary pCO2 POC Cap HCO3 (Calc) POC Sodium POC Potassium Anion Gap 13 Estim Creat Clear Calc 97.2 Estimated GFR > 60 POC Glucose Random Glucose 129 H Lactic Acid 1.6 Calcium 8.9 D Phosphorus 2.2 L Magnesium 1.8 Total Bilirubin 0.2 AST 60 H ALT 40 H Alkaline Phosphatase 50 Total Protein 8.3 H Albumin 4.4 Urine Test Imaging Radiologist's Impressions: Impressions Chest X-Ray 08/30/24 14:03 IMPRESSION: Patchy opacity in the right upper lobe which may represent pneumonia or aspiration. Electronically signed by: Stef Chapin MD 08/30/2024 02:31 PM [facility] Assessment and Plan (1) Anxiety: Status: Acute (2) Symptoms of depression: Status: Acute (3) GERD (gastroesophageal reflux disease): Status: Acute (4) Cholelithiases: Status: Acute Plan Dyspnea: Possibly secondary to fentanyl induced tight chest syndrome versus aspiration She was initially placed on BiPAP, later tapered down to high-flow and now to nasal cannula oxygen and her saturations and breathing is okay Labs stable, x-ray normal, D-dimer normal Status post cholecystectomy: NPO for now LR at 100 cc/hour Dilaudid p.r.n. for pain control Prophylaxis: SCD, pantoprazole
[2024-08-30] MEDS: HYDROmorphone HCl 0.5 MG/0.5 ML SYRINGE IVPUSH ×2 (17:31→21:59)
--- NOTE | 2024-08-30 17:55 | PM.EVENT ---
Event Note Date of Service: 08/30/24 Event Note: In the recovery room, patient became dyspneic and having some coughing with some blood-streaked mucus. Her vital signs including O2 saturation were maintained during this episode. Chest x-ray was also obtained demonstrating no pneumothorax. Patient underwent restorative measures per anesthesia and ICU consult was also obtained. Baseline laboratory values and blood gas were also obtained. Patient was initially placed on BiPAP which was then weaned down to high-flow nasal cannula. Because of the unclear nature of the patient's respiratory issues, current plan is to have her observed in the ICU overnight indirect further interventions and studies based on the patient's clinical course. Time Spent With Patient Time: Total time managing care of this patient today ____ minutes.
[2024-08-30] MEDS: Pantoprazole Sodium 40 MG/10 ML VIAL IVPUSH (18:28)
[2024-08-30] MEDS: cefTRIAXone sodium 2 GM VIAL IVPUSH (18:52)
--- NOTE | 2024-08-30 19:46 | PC.NURSE ---
assumed care of patinet at 16:20 on 08/30/24. patient alerts to name, appropriate, no signs of distress, chief complaint pain at surgical site and mid/lower back, requesting PO fluids, educated NPO for the time being. patient and family educated about plausible causes of respiratory distress in PACU. all questions answered at this time. patient call light in reach. PRN administered for pain per SEP. report given and care of patient handed off at 18:10 08/30/24
--- NOTE | 2024-08-30 21:51 | PHA.MEDREC ---
Pharmacy Consult ? Medication Reconciliation Pharmacy has completed the medication reconciliation, spoke to patient at bedside. Pt was in discomfort and was unable to speak but nodded yes and no, said she was not on any rx medications - nodded yes to OTC use of tyelnol/ibuprofen.
[2024-08-31] VITALS: BP 102/59; PULSE 52; RESP 20; TEMP 36.8; O2SAT 97
[2024-08-31] MEDS: Lactated Ringers 1,000 ML 100 ML IVCONT ×2 (03:22→13:20)
[2024-08-31 04:00] VITALS: BP 114/57; PULSE 55; RESP 16; TEMP 36.4; O2SAT 97
[2024-08-31] MEDS: Pantoprazole Sodium 40 MG/10 ML VIAL IVPUSH (05:56)
[2024-08-31 06:00] VITALS: BMI 32.4
[2024-08-31 07:47] VITALS: BP 116/71; PULSE 66; RESP 20; TEMP 36.6; O2SAT 98
--- NOTE | 2024-08-31 09:41 | P.PNIM_ITS ---
Subjective Subjective Date of Service: 08/31/24 Interval History: tapered from BiPAP to HFNC to NC and then room air chest tightness resolved, no hypoxia postop pain not passing gas yet Review of Systems Review of Systems: Yes all other systems are reviewed and are negative Physical Exam 2 Vital Signs: Vital Signs: Last Vital Signs Temp 97.8 F 08/31/24 07:47 Pulse 66 08/31/24 07:47 Resp 20 08/31/24 07:47 BP 116/71 08/31/24 07:47 Pulse Ox 98 08/31/24 07:47 O2 Del Method Room Air 08/31/24 07:47 O2 Flow Rate 40 08/30/24 16:10 FiO2 30 08/30/24 16:10 BMI result Body Mass Index 32.4 Gen: in no acute distress HEENT: sclera anicteric, moist mucus membranes Neck: supple Lungs: diminished Heart: regular rate and rhythm, no murmurs Abd: soft, lap terrence incisions dry Ext: no edema Skin: warm/well-perfused Neuro: alert and oriented x3, no focal findings Psych: appropriate affect Objective Data Active Medications Ceftriaxone Sodium (Ceftriaxone Sodium 2 Gm Vial) 2 gm IVPUSH Q24H [facility] Last Admin: 08/30/24 18:52 Dose: 2 gm Documented By: JOSÉ ANTONIO Hydromorphone HCl (Hydromorphone Hcl 0.5 Mg/0.5 Ml Syringe) 0.5 mg IVPUSH Q4H PRN; Protocol PRN Reason: Pain, Moderate(Pain Scale 4-6) Last Admin: 08/30/24 21:59 Dose: 0.5 mg Documented By: MASON Lactated Ringer's (Lr) 1,000 mls @ 100 mls/hr IVCONT .Q10H [facility] Last Admin: 08/31/24 03:22 Dose: 100 mls/hr Documented By: MASON Naloxone HCl (Naloxone Hcl 0.4 Mg/Ml Vial) 0.04 mg IVPUSH Q5M PRN PRN Reason: Excessive sedation or RR < 8 Pantoprazole Sodium (Pantoprazole Sodium 40 Mg/10 Ml Vial) 40 mg IVPUSH DAILY@0630 [facility] Last Admin: 08/31/24 05:56 Dose: 40 mg Documented By: MASON Labs 08/30/24 15:32 02/14/25 15:31 Labs: Laboratory Results - last 24 hr 08/30/24 08/30/24 08/30/24 14:54 14:55 15:31 POC Hgb (Calc) 10.2 L POC Hct 30 L MCV 81.9 MCH 27.4 MCHC 33.5 RDW 13.0 Plt Count 269 MPV 10.2 Immature Gran % (Auto) 0.4 Neut % (Auto) 92.3 H Lymph % (Auto) 6.[address] [place] % (Auto) 1.0 L Eos % (Auto) 0.0 Baso % (Auto) 0.2 Lymph # (Auto) 0.[address] [place] # (Auto) 0.1 Eos # (Auto) 0.0 Baso # (Auto) 0.0 Abs Immat Gran (auto) 0.05 H Absolute Neuts (auto) 11.3 H Absolute Nucleated RBC 0.000 Nucleated RBC % (auto) 0.0 Smear Tech's Comments VERIFIED D-Dimer High Sensitivty POC Std Base Excess -9 L POC O2 Sat (Calc) TNP POC ABG pO2 TNP POC ABG Total CO2 18 L POC Capillary pH 7.31 L POC Capillary pCO2 34 L POC Cap HCO3 (Calc) 17 L POC Sodium 146 H POC Potassium 2.7 L* Anion Gap 15 13 Estim Creat Clear Calc 97.2 Estimated GFR > 60 POC Glucose 82 Random Glucose 129 H Lactic Acid 1.6 Calcium 8.9 D Phosphorus 2.2 L Magnesium 1.8 Total Bilirubin 0.2 AST 60 H ALT 40 H Alkaline Phosphatase 50 Total Protein 8.3 H Albumin 4.4 08/30/24 15:32 POC Hgb (Calc) POC Hct MCV 81.3 MCH 27.2 MCHC 33.4 RDW 13.0 Plt Count 272 MPV 10.0 Immature Gran % (Auto) 0.4 Neut % (Auto) 92.6 H Lymph % (Auto) 6.[address] [place] % (Auto) 0.9 L Eos % (Auto) 0.0 Baso % (Auto) 0.1 Lymph # (Auto) 0.[address] [place] # (Auto) 0.1 Eos # (Auto) 0.0 Baso # (Auto) 0.0 Abs Immat Gran (auto) 0.04 H Absolute Neuts (auto) 10.3 H Absolute Nucleated RBC 0.000 Nucleated RBC % (auto) 0.0 Smear Tech's Comments D-Dimer High Sensitivty 560 POC Std Base Excess POC O2 Sat (Calc) POC ABG pO2 POC ABG Total CO2 POC Capillary pH POC Capillary pCO2 POC Cap HCO3 (Calc) POC Sodium POC Potassium Anion Gap Estim Creat Clear Calc Estimated GFR POC Glucose Random Glucose Lactic Acid Calcium Phosphorus Magnesium Total Bilirubin AST ALT Alkaline Phosphatase Total Protein Albumin Assessment and Plan (1) Dyspnea: Status: Acute Plan d2 for 28yo F who came in for lap terrence for biliary colic but postop developed dyspnea with question of blood-tinged sputum [though had drank cranberry juice] was placed on BiPAP and transferred to ICU but quickly weaned to HFNC then NC then room air dyspnea, likely fentanyl-induced tight chest syndrome vs aspiration - CXR with pneumonia, started ceftriaxone 08/30, will change to ampicillin- sulbactam 08/31, likely complete course with amoxicillin-clavulanate upon discharge POD1 lap terrence - NPO, advance diet per Surgery team VTE ppx - SCDs, enoxaparin with OK with Surgery dispo - eventual home In my clinical judgment, the patient requires continued inpatient hospitalization for the following reasons: postop care Total time managing care of this patient today: 35 minutes. Quality Stroke Does the patient have a stroke diagnosis?: No VTE Prior VTE?: No VTE Risk Level:: Medical - low VTE Device Contraindication: N/A - Device Ordered VTE Drug Contraindication: N/A - Med Ordered
[2024-08-31 10:23] VITALS: O2SAT 97
[2024-08-31] MEDS: Ampicillin Sodium/Sulbactam Na 3 GM in 0.9 % Sodium Chloride 100 ML IV (11:05)
[2024-08-31] MEDS: HYDROmorphone HCl 0.5 MG/0.5 ML SYRINGE IVPUSH (11:05)
[2024-08-31 11:27] VITALS: BP 111/69; PULSE 53; RESP 18; TEMP 36.6; O2SAT 99
--- NOTE | 2024-08-31 14:08 | HO.POSTANES ---
Post Anesthesia Evaluation Post Anesthesia Evaluation Date of Service: 08/31/24 Vital Signs: Vital Signs Temp Pulse Resp BP Pulse Ox O2 Del Method 08/31/24 11:27 97.9 F 53 18 111/69 99 Room Air 08/31/24 10:23 97 Room Air 08/31/24 07:47 97.8 F 66 20 116/71 98 Room Air 08/31/24 04:00 97.6 F 55 16 114/57 L 97 Room Air Anesthesia: General Endotracheal-GETA Mental Status: Awake Pain Control: Satisfactory Nausea/Vomiting: None Hydration: Adequate Anesthesia-Related Issues: No Anes. Related Issues
--- NOTE | 2024-08-31 15:06 | P.PNGS_ITS ---
Subjective Subjective Date of Service: 08/31/24 Interval history: Patient was evaluated this morning with her family ( and 3 children) present. She is doing quite well. Feels back to her baseline. She is tolerating a diet. She is up out of bed ambulating. She would like to be discharged home. Physical Exam 2 Vital Signs: Vital Signs: Last Vital Signs Temp 97.9 F 08/31/24 11:27 Pulse 53 08/31/24 11:27 Resp 18 08/31/24 11:27 BP 111/69 08/31/24 11:27 Pulse Ox 99 08/31/24 11:27 O2 Del Method Room Air 08/31/24 11:27 O2 Flow Rate 40 08/30/24 16:10 FiO2 30 08/30/24 16:10 BMI result Body Mass Index 32.4 GI: Other: Abdomen is soft. All incision dressings clean dry and intact Objective Data Active Medications Hydromorphone HCl (Hydromorphone Hcl 0.5 Mg/0.5 Ml Syringe) 0.5 mg IVPUSH Q4H PRN; Protocol PRN Reason: Pain, Moderate(Pain Scale 4-6) Last Admin: 08/31/24 11:05 Dose: 0.5 mg Documented By: REMY Lactated Ringer's (Lr) 1,000 mls @ 100 mls/hr IVCONT .Q10H [facility] Last Admin: 08/31/24 13:20 Dose: 100 mls/hr Documented By: REMY Ampicillin Sodium/Sulbactam (Sodium 3 gm/ Sodium Chloride) 100 mls @ 200 mls/hr IV Q6H [facility] Last Infusion: 08/31/24 11:42 Dose: Infused Documented By: REMY Naloxone HCl (Naloxone Hcl 0.4 Mg/Ml Vial) 0.04 mg IVPUSH Q5M PRN PRN Reason: Excessive sedation or RR < 8 Pantoprazole Sodium (Pantoprazole Sodium 40 Mg/10 Ml Vial) 40 mg IVPUSH DAILY@0630 [facility] Last Admin: 08/31/24 05:56 Dose: 40 mg Documented By: MASON Labs 08/30/24 15:32 08/30/24 15:31 Labs: Laboratory Results - last 24 hr 08/30/24 08/30/24 08/30/24 14:54 14:55 15:31 MCV 81.9 MCH 27.4 MCHC 33.5 RDW 13.0 Plt Count 269 MPV 10.2 Immature Gran % (Auto) 0.4 Neut % (Auto) 92.3 H Lymph % (Auto) 6.1 L [place] % (Auto) 1.0 L Eos % (Auto) 0.0 Baso % (Auto) 0.2 Lymph # (Auto) 0.8 L [place] # (Auto) 0.1 Eos # (Auto) 0.0 Baso # (Auto) 0.0 Abs Immat Gran (auto) 0.05 H Absolute Neuts (auto) 11.3 H Absolute Nucleated RBC 0.000 Nucleated RBC % (auto) 0.0 Smear Tech's Comments VERIFIED D-Dimer High Sensitivty POC ABG pO2 TNP Anion Gap 15 13 Estim Creat Clear Calc 97.2 Estimated GFR > 60 Random Glucose 129 H Lactic Acid 1.6 Calcium 8.9 D Phosphorus 2.2 L Magnesium 1.8 Total Bilirubin 0.2 AST 60 H ALT 40 H Alkaline Phosphatase 50 Total Protein 8.3 H Albumin 4.4 08/30/24 15:32 MCV 81.3 MCH 27.2 MCHC 33.4 RDW 13.0 Plt Count 272 MPV 10.0 Immature Gran % (Auto) 0.4 Neut % (Auto) 92.6 H Lymph % (Auto) 6.0 L [place] % (Auto) 0.9 L Eos % (Auto) 0.0 Baso % (Auto) 0.1 Lymph # (Auto) 0.7 L [place] # (Auto) 0.1 Eos # (Auto) 0.0 Baso # (Auto) 0.0 Abs Immat Gran (auto) 0.04 H Absolute Neuts (auto) 10.3 H Absolute Nucleated RBC 0.000 Nucleated RBC % (auto) 0.0 Smear Tech's Comments D-Dimer High Sensitivty 560 POC ABG pO2 Anion Gap Estim Creat Clear Calc Estimated GFR Random Glucose Lactic Acid Calcium Phosphorus Magnesium Total Bilirubin AST ALT Alkaline Phosphatase Total Protein Albumin Procedures Date of Service Date of Service: 08/31/24 Progress Note: A&P Assessment and plan (1) Status post laparoscopic cholecystectomy: Status: Acute Plan Current plan is discharge patient home with follow-up in 1 week's time. Discharge instructions were re-reviewed as they were yesterday. All questions answered. Time Spent With Patient Time: Total time managing care of this patient today ____ minutes. Quality Stroke Does the patient have a stroke diagnosis?: No VTE Prior VTE?: No VTE Risk Level:: Medical - low VTE Device Contraindication: N/A - Device Ordered VTE Drug Contraindication: N/A - Med Ordered
--- NOTE | 2024-08-31 15:21 | PM.DS ---
DS: Providers Provider Date of Service: 08/31/24 Date of admission: 08/30/24 14:51 Date of discharge: 08/31/24 Primary care physician: ANN Avalos DS: Diagnosis Discharge Diagnosis (1) Status post laparoscopic cholecystectomy: Status: Acute (2) Dyspnea: Status: Acute (3) Pneumonia: Status: Acute DS: Summary Hospital Course Hospital Course: 28yo F who came in for lap terrence for biliary colic but postop developed dyspnea with question of blood-tinged sputum [though had drank cranberry juice]. She was placed on BiPAP and transferred to ICU but quickly weaned to HFNC then NC then room air. She was stepped down to the telemetry unit and continued to improve. Diet was advanced with good tolerance. CXR showed a small area of pneumonia, possibly from aspiration. She was given ceftriaxone and discharged on amoxicillin-clavulanate. She will [place] [facility] [place] 1 [place] for wound check Time Attestation Discharge Coordination Time (in mins): 35 Quality: Safe Use of Opioids Does Pt have an Active Cancer Diagnosis on the Problem List?: No Quality: Stroke Does the patient have a stroke diagnosis?: No Physical Exam Vital Signs: Vital Signs: Last Vital Signs Temp 97.9 F 08/31/24 11:27 Pulse 53 08/31/24 11:27 Resp 18 08/31/24 11:27 BP 111/69 08/31/24 11:27 Pulse Ox 99 08/31/24 11:27 O2 Del Method Room Air 08/31/24 11:27 O2 Flow Rate 40 08/30/24 16:10 FiO2 30 08/30/24 16:10 BMI result Body Mass Index 32.4 Gen: in no acute distress HEENT: sclera anicteric, moist mucus membranes Neck: supple Lungs: diminished Heart: regular rate and rhythm, no murmurs Abd: soft, lap terrence incisions dry Ext: no edema Skin: warm/well-perfused Neuro: alert and oriented x3, no focal findings Psych: appropriate affect DS: Data Data Completed and Pending Completed studies during hospitalization [Text1]: Laboratory Results WBC 11.1 X10*3/uL (4.8-10.8) H 08/30/24 15:32 RBC 4.86 X10*6/uL (4.20-5.50) 08/30/24 15:32 Hgb 13.2 g/dl (12.0-16.0) 08/30/24 15:32 POC Hgb (Calc) 10.2 g/dL (12.0-16.0) L 08/30/24 14:54 Hct 39.5 % (37.0-47.0) 08/30/24 15: POC Hct 30 %PCV (37-47) L 08/30/24 14:54 MCV 81.3 fL (80.0-98.0) 08/30/24 15:32 MCH 27.2 pg (27.0-33.0) 08/30/24 15: MCHC 33.4 g/dl (31.0-35.0) 08/30/24 15: RDW 13.0 % (11.0-16.0) 08/30/24 15: Plt Count 272 X10*3/uL (160-400) 08/30/24 15: MPV 10.0 fL (9.4-12.3) 08/30/24 15: Immature Gran % (Auto) 0.4 % (0.0-0.4) 08/30/24 15: Neut % (Auto) 92.6 % (45-73) H 08/30/24 15: Lymph % (Auto) 6.0 % (20-40) L 08/30/24 15:32 [place] % (Auto) 0.9 % (2-11) L 08/30/24: Eos % (Auto) 0.0 % (0-4) 08/30/24: Baso % (Auto) 0.1 % (0-2) 08/30/24 15:32 Lymph # (Auto) 0.7 X10*3/uL (1.2-4.9) L 08/30/24 15:32 [place] # (Auto) 0.1 X10*3/uL (0.1-1.2) 08/30/24 15:32 Eos # (Auto) 0.0 X10*3/uL (0.0-0.4) 08/30/24 15: Baso # (Auto) 0.0 X10*3/uL (0.0-0.2) 08/30/24 15:32 Abs Immat Gran (auto) 0.04 X10*3/uL (0.00-0.03) H 08/30/24 15:32 Absolute Neuts (auto) 10.3 x10*3/uL (2.0-8.3) H 08/30/24 15:32 Absolute Nucleated RBC 0.000 X10*3/uL (0.0-0.012) 08/30/24 15:32 Nucleated RBC % (auto) 0.0 /100WBC (0.0-0.2) 08/30/24 15:32 Smear Tech's Comments VERIFIED 08/30/24 14:55 D-Dimer High Sensitivty 560 NG/ML 08/30/24 15:32 POC Std Base Excess -9 mmol/L (-3-3) L 08/30/24 14:54 POC O2 Sat (Calc) TNP 08/30/24 14:54 POC ABG pO2 TNP 08/30/24 14:54 POC ABG Total CO2 18 mmol/L (24-29) L 08/30/24 14:54 POC Capillary pH 7.31 (7.35-7.45) L 08/30/24 14:54 POC Capillary pCO2 34 mmhg (35-48) L 08/30/24 14:54 POC Cap HCO3 (Calc) 17 mmol/L (22-26) L 08/30/24 14:54 POC Sodium 146 mmol/L (135-145) H 08/30/24 14:54 Sodium 137 mmol/L (135-145) 08/30/24 15:31 POC Potassium 2.7 mmol/L (3.3-5.1) L* 08/30/24 14:54 Potassium 3.5 mmol/L (3.3-5.1) 08/30/24 15:31 Chloride 105 mmol/L (96-108) 08/30/24 15:31 Carbon Dioxide 23 mmol/L (22-29) 08/30/24 15:31 Anion Gap 13 (12-20) 08/30/24 15:31 BUN 8 mg/dL (9-16) L 08/30/24 15:31 Creatinine 0.79 mg/dL (0.5-1.4) 08/30/24 15:31 Estim Creat Clear Calc 97.2 08/30/24 15:31 Estimated GFR > 60 08/30/24 15:31 POC Glucose 82 mg/dL (60-115) 08/30/24 14:54 Random Glucose 129 mg/dL (60-115) H 08/30/24 15:31 Lactic Acid 1.6 mmol/L (0.5-2.0) 08/30/24 15:31 Calcium 8.9 mg/dL (8.4-10.2) D 08/30/24 15:31 Phosphorus 2.2 mg/dL (2.7-4.5) L 08/30/24 15:31 Magnesium 1.8 mg/dL (1.6-2.6) 08/30/24 15:31 Total Bilirubin 0.2 mg/dL (0.0-1.0) 08/30/24 15:31 AST 60 U/L (5-31) H 08/30/24 15:31 ALT 40 U/L (0-31) H 08/30/24 15:31 Alkaline Phosphatase 50 U/L (39-117) 08/30/24 15:31 Troponin I High Sens < 2.7 ng/L (<3.5-17.0) 08/30/24 15:32 Total Protein 8.3 g/dL (6.5-8.0) H 08/30/24 15:31 Albumin 4.4 g/dL (3.5-5.0) 08/30/24 15:31 Urine Test NEGATIVE (NEGATIVE) 08/30/24 09:05 Pending studies at discharge: Pending at discharge 08/30/24 11:07 Surgical [PTH] Routine Discharge Plan Discharge Anticipated Discharge Date/Time: 08/31/24 15:08 Patient Disposition: Home, Self-Care Discharge Diagnosis: Status post cholecystectomy, anxiety attack Referrals: Carolina Dobson PA [Primary Care Provider] - 1 Week Herb Knapp MD [Physician] - 1 Week Discharge Medications: New hydrocodone-acetaminophen 5-325 mg tablet 1 tab PO Q4-6H PRN (Reason: pain) Qty: 30 0RF Rx Instructions: Partial Fill upon patient request. amoxicillin-pot clavulanate 875-125 mg tablet 1 tab PO BID Qty: 8 0RF Continued acetaminophen [Tylenol] 325 mg Tablet 650 mg PO Q6H PRN (Reason: Pain) ibuprofen 200 mg Tablet 400 mg PO Q6H PRN (Reason: Pain) Discharge Orders: Discharge Order (Routine); Ordered 08/30/24 Ordered By: Herb Knapp Diet: Advance to usual diet Activity on Discharge: No heavy lifting Print Language: [place]er Activity Restrictions/Additional Instructions: Ice to wound 20 minutes several times today and tomorrow. May shower tomorrow. Remove outside dressing only. Leave Steri-Strips intact. No strenuous activities Care Plan Goals: Returned to baseline Health Concerns: Continued convalescence Plan of Treatment: Recovered from surgery take amoxicillin-clavulanate twice daily for 4 days to treat pneumonia Assessment: Stable
[2024-08-31 15:40] VITALS: BP 123/79; PULSE 66; RESP 18; TEMP 36.3; O2SAT 100
--- NOTE | 2024-08-31 16:18 | MHC.CM.PN ---
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
== END 2024-08-31 17:36 | disposition home or self-care (01) | DRG 263 ==
LOC: HO.SSS 17:08 → HO.EDOVER 17:11 → HO.ICU 17:27 → HO.IMC 20:24
PROVIDERS: Nurse Practitioner; Surgery; Admitting Provider Internal Medicine Critical Care Medicine; PCP Physician Assistant Medical; Visit Provider Family Medicine
PROC: 0FT44ZZ Resection of Gallbladder, Percutaneous Endoscopic Approach (ICD-10-PCS; CPT 47562; principal; 2024-08-30 11:00)
DX: K80.50 Calculus of bile duct without cholangitis or cholecystitis without obstruction (principal); J69.0 Pneumonitis due to inhalation of food and vomit; F41.9 Anxiety disorder, unspecified; R07.89 Other chest pain; T40.415A Adverse effect of fentanyl or fentanyl analogs, initial encounter; R04.2 Hemoptysis
CPT/HCPCS: 36415; 71045; 80051; 80053; 81025; 83605; 83735; 84100; 84484; 85025; 85379; 88304; J0131; J0295; J0690; J0696; J1100; J1171; J1885; J1940; J2003; J2250; J2405; J2470; J2704; J2795; J3010; J7120

== ENCOUNTER → 2024-08-30 14:51 | Outpatient (BNV) | payer OTHER, SELFPAY | PROVIDERS: Admitting Provider Internal Medicine Critical Care Medicine; PCP Physician Assistant Medical; Visit Provider Family Medicine | DX: J18.9 Pneumonia, unspecified organism (principal); Z90.49 Acquired absence of other specified parts of digestive tract; R06.00 Dyspnea, unspecified | CPT/HCPCS: 99239; 99499 ==

== ENCOUNTER 2024-09-09 11:22 | Outpatient (AMB) | payer OTHER, SELFPAY ==
--- NOTE | 2024-09-09 11:22 | MHC.OFFVIS ---
Intake Visit Reasons: s/p Lap terrence Intake Note: Patient here s/p laparoscopic cholecystectomy. Reports incision healing well. Patient c/o: denies diarrhea, constipation. Only took rx pain meds for 2days. 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 She is doing well. Aside from incisional discomfort is improving she otherwise has no other issues. She is tolerating a diet. Having regular bowel habits. A increasing her activity level. [facility] Medical History (Updated 09/08/24 @ 00:02 by Pilar Steinberg) Routine physical examination Vomiting GERD (gastroesophageal reflux disease) Low back pain radiating to left leg Symptoms of depression Back ache IBS (irritable bowel syndrome) Anxiety Surgical History (Updated 09/09/24 @ 11:48 by Herb Knapp MD) Hx laparoscopic cholecystectomy (08/30/24) Cholelithiases History of liposuction of abdomen H/O foot surgery Family History Family/Other FH: mental illness Maternal Grandfather Asthma Mother High blood pressure Thyroid disorder Father High blood pressure Diabetes Thyroid disorder Testicular cancer Paternal Grandmother High blood pressure High cholesterol Social History Household Members: Family Housing: House Are you a primary vehicle care specialist to a significant other at home: No Do you presently have visiting nurse or other home services: No Comment: counts correct Patient Tobacco Use Status: Never used Tobacco e-Cigarette/Vaping Use: Never Used Second Hand Smoke Exposure: No service: No Current occupational status: employed 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 All wounds clean dry and intact healing well Assessment & Plan Assessment & Plan (1) Status post laparoscopic cholecystectomy: Code(s): Z90.49 - Acquired absence of other specified parts of digestive tract Category: Medical Plan Patient was been given local instructions, and otherwise follow-up p.r.n.. All questions answered. Coding Level of Care Code Global (57146) Diagnoses Status post laparoscopic cholecystectomy Z90.49
== END 2024-09-09 11:40 | disposition home or self-care (01) ==
PROVIDERS: PCP Physician Assistant Medical; Visit Provider Surgery
DX: Z90.49 Acquired absence of other specified parts of digestive tract (principal)
CPT/HCPCS: 99024

== ENCOUNTER → 2024-09-09 11:22 | Outpatient (BNVA) | payer OTHER, SELFPAY | PROVIDERS: PCP Physician Assistant Medical; Visit Provider Surgery | DX: Z90.49 Acquired absence of other specified parts of digestive tract (principal) | CPT/HCPCS: 99212 ==

== ENCOUNTER 2024-09-30 09:16 | Outpatient (AMB) | payer OTHER, SELFPAY ==
--- NOTE | 2024-09-30 09:23 | A.OFFPC_ITS ---
Vital Signs 09/30/24 09:26 Height 5 ft 1 in Weight 160 lb 8 oz BMI 30.3 BP 128/70 Blood Pressure Location Rt brachial Position Sitting Respiration 12 Pulse 51 Pulse Source Pulse Oximeter Temp 97.1 F Temp Source Oral Pulse Oximetry (%) 100 Oxygen Delivery Method Room Air Intake Visit Reasons: Surgery Follow up Intake Note: surgery follow up Building Associate Required: No Allergies No Known Allergies Allergy (Verified 09/30/24 09:23) Tobacco use date assessed: 09/30/24 Dental Screening Dental Screen Date: 09/30/24 Did you have a dental visit in the last 12 months?: Yes Did you have a dental problem in the last 6 months where you did not have access to dental care?: No Was dental information given to patient?: Patient has dentist HPI HPI Comments History of Present Illness Details This is a 29-year-old female with a past medical history of anxiety, depression, GERD and cholelithiasis presenting for follow up. Patient underwent laparoscopic cholecystectomy with Dr. Knapp on 08/30/2024. Patient is doing well now. She denies abdominal pain or acid reflux since the surgery however she continues to experience postprandial nausea and vomiting after eating. This happens after at least 1 meal per day. It does not matter what type of food she eats. This is unchanged since before her surgery. She is disappointed that symptoms did not resolve. She was referred to Gastroenterology, and she was called to schedule the appointment, but she did not call back to do this. Denies diarrhea, blood in stools or blood in vomit. She drinks alcohol 1 occasion per week. She reports drinking only 1-2 or at most 3 drinks when she does drink alcohol. She does not smoke cigarettes. She has tried Tums which helped decrease the severity of symptoms. She denies weight loss. Patient says sometimes she overeats due to anxiety and stress. I had previously referred the patient for counseling, but she said she was not able to do it at the time because of other circumstances. She believes she may have undiagnosed ADHD and OCD. Her children are doing well. She does not have any upcoming travel plans now. Endorses transient thoughts of feeling like it would be better not to be here, but denies plan to harm herself and considers her children her anchors. Patient says she does not wish to harm herself or others. She does not want to take medication for any of the symptoms. ROS: Constitutional: No unexplained weight loss, fever, chills or night sweats. Respiratory: No shortness of breath, cough or sputum production. Cardiovascular: No chest pain Gastrointestinal: See HPI Genitourinary: No dysuria, hematuria, urinary frequency. Neurologic: No headache, dizziness, syncope, unilateral weakness Hematologic/Lymphatics: No bleeding or bruising. Skin: No rash or itching. Endocrine: No cold or heat intolerance. No polyuria or polydipsia. Psychiatric: see HPI Physical exam: Constitutional: Alert, in no distress. Eyes: Pupils are equal, round and reactive to light. Extraocular muscles intact. Neck: Supple, Full range of motion. No lymphadenopathy. No palpable thyroid masses. Respiratory: Clear to auscultation. Cardiovascular: S1 S2 regular. No murmurs. Gastrointestinal: Abdomen soft, non-tender, non-distended. Normal bowel sounds. No palpable masses. Genitourinary: No costovertebral angle tenderness. Skin: No rashes Extremities: Warm and well perfused. No clubbing, cyanosis or edema. Psychiatric: Normal mood and affect REPLACED BY [facility] Medical History (Updated 09/30/24 @ 14:54 by ANN Avalos) Depression with anxiety Routine physical examination Vomiting GERD (gastroesophageal reflux disease) Low back pain radiating to left leg Symptoms of depression Back ache IBS (irritable bowel syndrome) Anxiety Surgical History (Updated 09/09/24 @ 11:48 by Herb Knapp MD) Hx laparoscopic cholecystectomy (08/30/24) Cholelithiases History of liposuction of abdomen H/O foot surgery Family History Family/Other FH: mental illness Maternal Grandfather Asthma Mother High blood pressure Thyroid disorder Father High blood pressure Diabetes Thyroid disorder Testicular cancer Paternal Grandmother High blood pressure High cholesterol Social History Household Members: Family Housing: House Are you a primary child care attendant school to a significant other at home: No Do you presently have visiting nurse or other home services: No Comment: counts correct Patient Tobacco Use Status: Never used Tobacco e-Cigarette/Vaping Use: Never Used Second Hand Smoke Exposure: No service: No Current occupational status: employed 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 1. Little interest or pleasure in doing things: several days 3. Trouble falling or staying asleep, or sleeping too much: several days 5. Poor appetite or overeating: nearly every day 6. Feeling bad about yourself - or that you are a failure or have let yourself or your family down: several days 7. Trouble concentrating on things, such as reading the newspaper or watching television: more than half the days 8. Moving or speaking so slowly that other people could have noticed. Or the opposite - being so fidgety or restless that you have been moving around a lot more than usual: not at all 9. Thoughts that you would be better off or of hurting yourself in some way: several days Depression Screening Interpretation: Positive Depression Screening Follow-up: Other (referred) Depression Screening Done: Yes 79437 - PHQ-9 Billing: Yes Source: Developed by Drs. Stef Toussaint, Bhavna Jim, Osman Austin and colleagues, with an educational pamella from [employer]. Thrive Questionnaire Date Thrive assessed: 09/30/24 I am a: Patient What is your living situation today?: I have a steady place to live Within the past 12 months, did the food you bought not last and you didn't have the money to get more?: Sometimes True Within the past 12 months, did you worry whether your food would run out before you got money to buy more?: Sometimes True Do you have trouble paying for medicines?: Yes Do you have trouble getting transportation to medical appointments?: No Do you have trouble paying your heating and electricity bill?: Yes Do you have trouble taking care of your child, family member or friend?: No Do you have trouble with day-to-day activities such as bathing, preparing meals, shopping, managing finances, etc.?: No Are you currently unemployed and looking for a job?: No Are you interested in more education?: Yes Please select the resources that you would like help with: Food, Utilities, Childcare and Education Currently or been in a relationship where the following occur: I choose not to answer THRIVE Score: 3 AUDIT C Alcohol Use Questionnaire (AUDIT-C) 1. How often do you have a drink containing alcohol?: Monthly or less 2. How many drinks containing alcohol do you have on a typical day when you are drinking?: 1 or 2 3. How often do you have six or more drinks on one occasion?: Less than monthly Total Score: 2 MELODIE-7 AMB Questionnaire MELODIE-7 Date MELODIE - 7 assessed: 09/30/24 Feeling nervous, anxious, or on edge: 1 = Several days Not being able to stop or control worryin = Several days Worrying too much about different things: 1 = Several days Trouble relaxin = Several days Being so restless that it is hard to sit still: 1 = Several days Becoming easily annoyed or irritable: 1 = Several days Feeling afraid as if something awful might happen: 1 = Several days Total MELODIE-7 score (0-4 normal; 5-9 mild; 10-14 moderate; 15-21 severe): 7 Source: Developed by Drs. Stef Toussaint, Bhavan Jim, Osman Austin and colleagues, with an educational pamella from [employer]. MELODIE-7 Assessment Billing MELODIE-7 Assessment Tool: MELODIE-7 Assessment 84644 Physical exam (Primary Care) Vital Signs: Last Vital Signs Temp 97.1 F 09/30/24 09:26 Pulse 51 09/30/24 09:26 Resp 12 09/30/24 09:26 BP 128/70 09/30/24 09:26 Pulse Ox 100 09/30/24 09:26 Oxygen Delivery Method Room Air 09/30/24 09:26 BMI result Body Mass Index 30.3 Tobacco/Smoking Status: Tobacco use Status Tobacco use date assessed 09/30/24 09/30/24 09:28 Patient Tobacco Use Status Never used Tobacco 09/30/24 09:28 e-Cigarette/Vaping Use Never Used 09/30/24 09:28 Depression Screening Interpretation: Positive Depression Screening Follow-up: Other (referred) Thrive Assessment: Date of Thrive Assessment Date Thrive assessed 09/30/24 09/30/24 09:28 Currently or been in a relationship where the following occur: I choose not to answer Coding Level of Care Code Est Pt Level 4 (17970) Complex EM visit Add On G2211 Diagnoses Nausea and vomiting, unspecified vomiting type R11.2 Vomiting type: unspecified Nausea presence: with nausea Gastroesophageal reflux disease without esophagitis K21.9 Esophagitis presence: without esophagitis Status post laparoscopic cholecystectomy Z90.49 Depression with anxiety F41.8 Additional Codes MELODIE-7 Assessment Billing - MELODIE-7 Assessment Tool: MELODIE-7 Assessment 35761 ([id number]) PHQ-9 - 56217 - PHQ-9 Billing: Yes ([id number]) Assessment & Plan Assessment & Plan (1) Vomiting: Code(s): R11.10 - Vomiting, unspecified Category: Medical Qualifiers: Vomiting type: unspecified Nausea presence: with nausea Qualified Code(s): R11.2 - Nausea with vomiting, unspecified (2) GERD (gastroesophageal reflux disease): Code(s): K21.9 - Gastro-esophageal reflux disease without esophagitis Category: Medical Qualifiers: Esophagitis presence: without esophagitis Qualified Code(s): K21.9 - Gastro-esophageal reflux disease without esophagitis (3) Status post laparoscopic cholecystectomy: Code(s): Z90.49 - Acquired absence of other specified parts of digestive tract Category: Surgical (4) Depression with anxiety: Code(s): F41.8 - Other specified anxiety disorders Category: Medical Plan Patient's abdominal pain and eusebio acid reflux improved after cholecystectomy, but she has continued episodes of nausea and vomiting after eating. Trial of omeprazole 20 mg every morning before eating or drinking. Avoid alcohol, NSAIDs and acidic food and drink. Sleep with head propped upright on pillows. Referred anew to Gastroenterology. Warning signs warranting ER evaluation reviewed. There also might be psychiatric component for nausea and vomiting. Patient said she overeats sometimes as a comfort measure. She does not want medication to treat anxiety or depression at this time. She is agreeable to seeing Psychology and Psychiatry. Referrals placed. Repeat labs. Patient expressed transient SI with no plan to harm herself or others. She is aware of the number for crisis. Advised patient to go to the ED if she has worsening of psychiatric symptoms. Follow up in 6 weeks. Orders: Orders Complete Blood Count Auto Diff Today K21.9 - Gastro-esophageal reflux disease without esophagitis, R11.10 - Vomiting, unspecified Lipase Today K21.9 - Gastro-esophageal reflux disease without esophagitis, R11.10 - Vomiting, unspecified Amylase Today K21.9 - Gastro-esophageal reflux disease without esophagitis, R11.10 - Vomiting, unspecified TSH reflex Free T4 Today K21.9 - Gastro-esophageal reflux disease without esophagitis, R11.10 - Vomiting, unspecified H pylori Ag Stool Today K21.9 - Gastro-esophageal reflux disease without esophagitis, R11.10 - Vomiting, unspecified Referrals Gastroenterology Referral R11.10 - Vomiting, unspecified Medications: New omeprazole 20 mg PO DAILY 30 caps 0RF
[2024-09-30 09:26] VITALS: BP 128/70; PULSE 51; RESP 12; TEMP 36.2; O2SAT 100; BMI 30.3
== END 2024-09-30 09:52 | disposition home or self-care (01) ==
LOC: HO.HMCFM 09:17
PROVIDERS: PCP Physician Assistant Medical; Visit Provider Physician Assistant Medical
DX: R11.2 Nausea with vomiting, unspecified (principal); K21.9 Gastro-esophageal reflux disease without esophagitis; Z90.49 Acquired absence of other specified parts of digestive tract; F41.8 Other specified anxiety disorders

== ENCOUNTER 2024-09-30 09:16 | Outpatient (REF) | payer OTHER, SELFPAY ==
[2024-09-30 11:27] LABS: MANUAL DIFF FLAG NO
[2024-09-30 11:36] LABS: Basophils Percent Auto 0.4 % (0-2); Eosinophils Absolute Auto 0.1 X10*3/uL (0.0-0.4); Eosinophils Percent Auto 1.4 % (0-4); Hematocrit 38.4 % (37.0-47.0); Hemoglobin 12.5 g/dl (12.0-16.0); Imm Gran Abs Auto 0.02 X10*3/uL (0.00-0.03); Imm Gran Pct Auto 0.4 % (0.0-0.4); Lymphocytes Absolute Auto 2.5 X10*3/uL (1.2-4.9); Mean Corpuscular HGB Conc 32.6 g/dl (31.0-35.0); Mean Corpuscular Hemoglobin 27.1 pg (27.0-33.0); Mean Corpuscular Volume 83.1 fL (80.0-98.0); Monocytes Absolute Auto 0.5 X10*3/uL (0.1-1.2); Monocytes Percent Auto 9.4 % (2-11); Neutrophils Absolute Auto 2.3 x10*3/uL (2.0-8.3); Neutrophils Percent Auto 42.4 % (45-73); Platelet Count 293 X10*3/uL (160-400); Red Blood Count 4.62 X10*6/uL (4.20-5.50); Red Cell Distribution Width 13.1 % (11.0-16.0); White Blood Count 5.5 X10*3/uL (4.8-10.8)
[2024-09-30 11:59] LABS: Amylase 65 U/L (28-100); Lipase 14 U/L (8-78)
[2024-09-30 12:17] LABS: TSH reflex Free T4 0.96 uIU/mL (0.32-4.0)
== END 2024-09-30 09:17 | disposition home or self-care (01) ==
LOC: HO.WFDLDS 09:16
PROVIDERS: PCP Physician Assistant Medical; Visit Provider Physician Assistant Medical
DX: R11.2 Nausea with vomiting, unspecified (principal); K21.9 Gastro-esophageal reflux disease without esophagitis; F41.8 Other specified anxiety disorders; Z90.49 Acquired absence of other specified parts of digestive tract
CPT/HCPCS: 36415; 82150; 83690; 84443; 85025; 96127; 99212

== ENCOUNTER 2024-10-09 10:00 | Outpatient (REF) | payer OTHER, SELFPAY | END 2024-10-09 10:01 | disposition home or self-care (01) | LOC: HO.HMGCLNP 10:00 | PROVIDERS: PCP Physician Assistant Medical; Visit Provider Physician Assistant Medical | DX: R11.10 Vomiting, unspecified (principal); K21.9 Gastro-esophageal reflux disease without esophagitis | CPT/HCPCS: 87338 ==

== ENCOUNTER 2025-01-27 12:03 | Outpatient (AMB) | payer OTHER, SELFPAY ==
--- NOTE | 2025-01-27 12:11 | MHC.OFFVIS ---
Vital Signs 01/27/25 12:15 Height 5 ft 1 in Weight 147 lb BMI 27.8 BP 83/61 L Blood Pressure Location Lt brachial Position Sitting Pulse 80 Pulse Oximetry (%) 98 Oxygen Delivery Method Room Air Intake Visit Reasons: Vomiting Intake Note: Patient new consult for vomiting Patient cc: abdominal discomfort, vomit after eating, poor appetite/feeling food not digestive right, and acid reflux with burning sensation Bit Gatherer Required: No Accompanied by: Self / Same As Patient Allergies No Known Allergies Allergy (Verified 01/27/25 12:11) Medication List - Last Reconciled 01/27/25 by WILFRID Martin- HPI HPI Vomiting: Details: 29-year-old female with past medical history of status post laparoscopic cholecystectomy, GERD, anxiety, depression, history of H pylori is here today for initial consultation. Patient was sent to us by her PCP. Patient reports worsening symptoms of epigastric pain and bloating. Reports to be more constipated lately. Patient was able to move her bowels better now she states that she does not feel like she empties her bowels completely. Occasional postprandial loose stool. Patient does have a history of H pylori in the past. Status post cholecystectomy patient was never retested to see if the H pylori was eradicated. Patient is not on any PPI currently. We will retest her in the office today. Patient denies nausea or vomiting. Denies melena, hematochezia, unintentional weight loss or ribbon like stools. [facility] Medical History (Updated 10/10/24 @ 16:58 by ANN Avalos) H. pylori infection Depression with anxiety Routine physical examination Vomiting GERD (gastroesophageal reflux disease) Low back pain radiating to left leg Symptoms of depression Back ache IBS (irritable bowel syndrome) Anxiety Surgical History Hx laparoscopic cholecystectomy (08/30/24) Cholelithiases History of liposuction of abdomen H/O foot surgery Family History Family/Other FH: mental illness Maternal Grandfather Asthma Mother High blood pressure Thyroid disorder Father High blood pressure Diabetes Thyroid disorder Testicular cancer Paternal Grandmother High blood pressure High cholesterol Social History Household Members: Family Housing: House Are you a primary hospice patient care secretary to a significant other at home: No Do you presently have visiting nurse or other home services: No Comment: counts correct Patient Tobacco Use Status: Never used Tobacco e-Cigarette/Vaping Use: Never Used Second Hand Smoke Exposure: No service: No Current occupational status: employed 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 Current occupational exposures/hazards: No Cognitive needs: No Hearing needs: No Vision needs: No Review of Systems Const Denies weight gain and Denies weight loss ENT Reports no additional complaints, Denies dysphagia and Denies odynophagia Card Reports no additional complaints Resp Reports no additional complaints GI Denies abdominal pain, Denies belching, Denies melena, Reports bloating, Denies change in bowel habits, Reports constipation, Denies dysphagia, Denies excessive flatus, Denies dyspepsia, Reports heartburn, Denies diarrhea, Denies loose stools, Reports nausea, Denies odynophagia and Reports vomiting Reports no additional complaints Musc Reports no additional complaints Neuro Reports no additional complaints Psych Reports no additional complaints Endo Reports no additional complaints Physical Exam Vital Signs: Last Vital Signs Pulse 80 01/27/25 12:15 BP 83/61 L 01/27/25 12:15 Pulse Ox 98 01/27/25 12:15 Oxygen Delivery Method Room Air 01/27/25 12:15 BMI result Body Mass Index 27.8 Const General: healthy appearing, no acute distress and well developed Nutritional Appearance: well nourished Orientation/consciousness: patient oriented x3 Resp Effort & Inspection: normal respiratory effort, able to speak in complete sentences, no tracheal deviation and symmetric chest movement Auscultation: clear to auscultation bilaterally Cardio Rate: regular rate GI Inspection: Yes normal to inspection and No distended Palpation (GI): Soft to palpation, not firm, nontender and No hepatosplenomegaly present Auscultation: normal bowel sounds General: Yes no CVA tenderness Back/Spine/Pelvis Back: no CVA tenderness Skin General skin exam: elasticity normal, turgor normal and dry skin Neuro General: patient oriented x3 Psych Appearance: grossly normal Mental Status: mental status grossly normal Assessment & Plan Assessment & Plan (1) GERD (gastroesophageal reflux disease): Code(s): K21.9 - Gastro-esophageal reflux disease without esophagitis Category: Medical Qualifiers: Esophagitis presence: without esophagitis Qualified Code(s): K21.9 - Gastro-esophageal reflux disease without esophagitis (2) Vomiting: Code(s): R11.10 - Vomiting, unspecified Category: Medical Qualifiers: Vomiting type: unspecified Nausea presence: with nausea Qualified Code(s): R11.2 - Nausea with vomiting, unspecified (3) H. pylori infection: Code(s): A04.8 - Other specified bacterial intestinal infections Category: Medical (4) Status post laparoscopic cholecystectomy: Code(s): Z90.49 - Acquired absence of other specified parts of digestive tract Category: Medical (5) Postprandial abdominal bloating: Code(s): R14.0 - Abdominal distension (gaseous) (6) Constipation: Code(s): K59.00 - Constipation, unspecified Qualifiers: Constipation type: slow transit constipation Qualified Code(s): K59.01 - Slow transit constipation Plan Will test in the office for H pylori and will treat empirically if positive. Patient is not on any PPI. Will send her to check vitamin-D, B12, folate and transglutaminase. Patient will be sent for upper GI with barium swallow. She will start taking pantoprazole in the morning. Avoid dietary triggers and late night snacking. Staying upright for minimum 3 hours after meals discussed with patient. Patient will try to take Dulcolax in the evening. Increase fluid intake and activity to promote better bowel motility. Discussed with patient also low FODMAP diet. List of food recommended as well as list of food to avoid given to patient. Patient will follow-up in 3 months, sooner on as needed basis. She is agreeable to this plan and verbalizes understanding of instructions. She was given the opportunity to ask questions and all questions answered. Thank you for allowing me to participate in her care Orders: Orders H Pylori Breath Test 01/27/25 K21.9 - Gastro-esophageal reflux disease without esophagitis Vitamin D 25-OH (D2 and D3) 01/27/25 E55.9 - Vitamin D deficiency, unspecified FL upper GI w Ba Swallow 01/27/25 K21.9 - Gastro-esophageal reflux disease without esophagitis Vitamin B12 and Folate 01/27/25 R19.7 - Diarrhea, unspecified Transglutaminase IgA 01/27/25 R10.9 - Unspecified abdominal pain Medications: New pantoprazole take one tablet half an hour before breakfast 40 mg PO DAILY 30 tabs 3RF K21.9 - Gastro-esophageal reflux disease without esophagitis bisacodyl (Dulcolax (bisacodyl)) 10 mg (2 x 5 mg) PO BEDTIME 60 tabs 4RF bisacodyl (Dulcolax (bisacodyl)) 10 mg (2 x 5 mg) PO BEDTIME 60 tabs 4RF pantoprazole take one tablet half an hour before breakfast 40 mg PO DAILY 30 tabs 3RF K21.9 - Gastro-esophageal reflux disease without esophagitis Coding Level of Care Code New Pt Level 4 (02029) Diagnoses Gastroesophageal reflux disease without esophagitis K21.9 Esophagitis presence: without esophagitis Nausea and vomiting, unspecified vomiting type R11.2 Vomiting type: unspecified Nausea presence: with nausea H. pylori infection A04.8 Status post laparoscopic cholecystectomy Z90.49 Postprandial abdominal bloating R14.0 Slow transit constipation K59.01 Constipation type: slow transit constipation Time Spent (min) 50 Comment 35 minutes spent with patient and additional 15 minutes spent reviewing her records
[2025-01-27 12:15] VITALS: BP 83/61; PULSE 80; O2SAT 98; BMI 27.8
== END 2025-01-27 16:18 | disposition home or self-care (01) ==
LOC: HO.HGI 12:04
PROVIDERS: PCP Physician Assistant Medical; Visit Provider Nurse Practitioner Family
DX: K21.9 Gastro-esophageal reflux disease without esophagitis (principal); R11.2 Nausea with vomiting, unspecified; A04.8 Other specified bacterial intestinal infections; Z90.49 Acquired absence of other specified parts of digestive tract; R14.0 Abdominal distension (gaseous); K59.01 Slow transit constipation
CPT/HCPCS: 99204

== ENCOUNTER 2025-01-27 12:03 | Outpatient (REF) | payer OTHER, SELFPAY ==
[2025-01-27 15:01] LABS: Folate 11.6 ng/mL (> or = 4.0); Vitamin B12 559 pg/mL (200-900)
[2025-01-31 16:47] LABS: Vitamin D 25-OH, D2 <4 ng/mL; Vitamin D 25-OH, D3 24 ng/mL; Vitamin D 25-OH, Total 24 ng/mL (30-100)
== END 2025-01-27 12:04 | disposition home or self-care (01) ==
LOC: HO.LAB 12:03
PROVIDERS: PCP Physician Assistant Medical; Visit Provider Nurse Practitioner Family
DX: R10.9 Unspecified abdominal pain (principal); E55.9 Vitamin D deficiency, unspecified; R19.7 Diarrhea, unspecified; K21.9 Gastro-esophageal reflux disease without esophagitis; A04.8 Other specified bacterial intestinal infections; K59.01 Slow transit constipation; Z90.49 Acquired absence of other specified parts of digestive tract
CPT/HCPCS: 36415; 82306; 82607; 82746; 83013; 86364; 99202

== ENCOUNTER 2025-03-04 10:26 | Outpatient (AMB) | payer OTHER, SELFPAY ==
--- NOTE | 2025-03-04 10:30 | A.OFFVIS_ITS ---
Vital Signs 03/04/25 10:34 Height 5 ft 1 in Weight 140 lb BMI 26.4 BP 102/62 Blood Pressure Location Rt brachial Position Sitting Pulse 82 Pulse Source Pulse Oximeter Pulse Oximetry (%) 100 Oxygen Delivery Method Room Air Intake Visit Reasons: Gastroesophageal reflux disease (GERD) Intake Note: Est pt for mgmt of chronic N+V, GERD. Hx of HP infx. CC; C.O. LUQ pain, acute onset within the last two weeks. No additional sx or concerns at this time. Allergies No Known Allergies Allergy (Verified 01/27/25 12:11) HPI HPI Gastroesophageal reflux disease (GERD): Details: LAST VISIT GERD (gastroesophageal reflux disease) Vomiting H. pylori infection Status post laparoscopic cholecystectomy Postprandial abdominal bloating Constipation Plan Will test in the office for H pylori and will treat empirically if positive. Patient is not on any PPI. Will send her to check vitamin-D, B12, folate and transglutaminase. Patient will be sent for upper GI with barium swallow. She will start taking pantoprazole in the morning. Avoid dietary triggers and late night snacking. Staying upright for minimum 3 hours after meals discussed with patient. Patient will try to take Dulcolax in the evening. Increase fluid intake and activity to promote better bowel motility. Discussed with patient also low FODMAP diet. List of food recommended as well as list of food to avoid given to patient. Patient will follow-up in 3 months, sooner on as needed basis. She is agreeable to this plan and verbalizes understanding of instructions. She was given the opportunity to ask questions and all questions answered. ? Thank you for allowing me to participate in her care Orders H Pylori Breath Test 01/27/25 K21.9 Vitamin D 25-OH (D2 and D3) 01/27/25 E55.9 FL upper GI w Ba Swallow 01/27/25 K21.9 Vitamin B12 and Folate 01/27/25 R19.7 Transglutaminase IgA 01/27/25 R10.9 New pantoprazole take one tablet half an hour before breakfast 40 mg PO DAILY 30 tabs 3RF K21.9 bisacodyl (Dulcolax (bisacodyl)) 10 mg (2 x 5 mg) PO BEDTIME 60 tabs 4RF bisacodyl (Dulcolax (bisacodyl)) 10 mg (2 x 5 mg) PO BEDTIME 60 tabs 4RF pantoprazole take one tablet half an hour before breakfast 40 mg PO DAILY 30 tabs 3RF K21.9 TODAY'S VISIT Patient is here today for follow-up and discussed lab results. Patient was unable to schedule upper GI series with barium swallow until late in April. All of her lab work was negative. Negative H pylori. Mildly low vitamin D level we will replace with supplements. Patient reports to be feeling significantly better. She is taking Dulcolax daily and is having her bowels well. However patient reports left upper quadrant cramping. Feeling significantly better after emptying her bowels. Reports that her stool is soft. Patient states that pantoprazole has been helping with acid reflux. Patient denies any acid reflux, dyspepsia, dysphagia or odynophagia. Patient denies melena, hematochezia, unintentional weight loss or ribbon like stools. Patient also reports that she change her diet. [facility] Medical History H. pylori infection Depression with anxiety Routine physical examination Vomiting GERD (gastroesophageal reflux disease) Low back pain radiating to left leg Symptoms of depression Back ache IBS (irritable bowel syndrome) Anxiety Surgical History Hx laparoscopic cholecystectomy (08/30/24) Cholelithiases History of liposuction of abdomen H/O foot surgery Family History Family/Other FH: mental illness Maternal Grandfather Asthma Mother High blood pressure Thyroid disorder Father High blood pressure Diabetes Thyroid disorder Testicular cancer Paternal Grandmother High blood pressure High cholesterol Social History Household Members: Family Housing: House Are you a primary behavioral health care manager to a significant other at home: No Do you presently have visiting nurse or other home services: No Comment: counts correct Patient Tobacco Use Status: Never used Tobacco e-Cigarette/Vaping Use: Never Used Second Hand Smoke Exposure: No service: No Current occupational status: employed 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 Current occupational exposures/hazards: No Cognitive needs: No Hearing needs: No Vision needs: No Review of Systems Const Denies weight gain and Denies weight loss ENT Reports no additional complaints, Denies dysphagia and Denies odynophagia Card Reports no additional complaints Resp Reports no additional complaints GI Reports abdominal pain (LUQ), Denies belching, Denies melena, Reports bloating, Denies change in bowel habits, Denies dysphagia, Denies excessive flatus, Denies dyspepsia, Denies heartburn, Denies diarrhea, Denies loose stools, Denies nausea, Denies odynophagia and Denies vomiting Musc Reports no additional complaints Neuro Reports no additional complaints Psych Reports no additional complaints Endo Reports no additional complaints Physical Exam Vital Signs: Last Vital Signs Pulse 82 03/04/25 10:34 BP 102/62 03/04/25 10:34 Pulse Ox 100 03/04/25 10:34 Oxygen Delivery Method Room Air 03/04/25 10:34 BMI result Body Mass Index 26.4 Const General: healthy appearing, no acute distress and well developed Nutritional Appearance: well nourished Orientation/consciousness: patient oriented x3 Resp Effort & Inspection: normal respiratory effort, able to speak in complete sentences, no tracheal deviation and symmetric chest movement Auscultation: clear to auscultation bilaterally Cardio Rate: regular rate GI Inspection: Yes normal to inspection and No distended Palpation (GI): Soft to palpation, not firm, nontender and No hepatosplenomegaly present Auscultation: normal bowel sounds General: Yes no CVA tenderness Back/Spine/Pelvis Back: no CVA tenderness Skin General skin exam: elasticity normal, turgor normal and dry skin Neuro General: patient oriented x3 Psych Appearance: grossly normal Mental Status: mental status grossly normal Assessment & Plan Assessment & Plan (1) GERD (gastroesophageal reflux disease): Code(s): K21.9 - Gastro-esophageal reflux disease without esophagitis Category: Medical Qualifiers: Esophagitis presence: without esophagitis Qualified Code(s): K21.9 - Gastro-esophageal reflux disease without esophagitis (2) Vomiting: Code(s): R11.10 - Vomiting, unspecified Category: Medical Qualifiers: Vomiting type: unspecified Nausea presence: with nausea Qualified Co de(s): R11.2 - Nausea with vomiting, unspecified (3) H. pylori infection: Code(s): A04.8 - Other specified bacterial intestinal infections Category: Medical (4) Status post laparoscopic cholecystectomy: Code(s): Z90.49 - Acquired absence of other specified parts of digestive tract Category: Surgical (5) Postprandial abdominal bloating: Code(s): R14.0 - Abdominal distension (gaseous) (6) Constipation: Code(s): K59.00 - Constipation, unspecified Qualifiers: Constipation type: slow transit constipation Qualified Code(s): K59.01 - Slow transit constipation Plan Patient will continue taking pantoprazole every morning. Avoid dietary triggers a late night snacking. Staying upright for minimal 3 hours after meals discussed with patient. Patient will stop Dulcolax and start senna. Patient's left upper quadrant might be related to Dulcolax. Increase fluid intake and activity to promote better bowel motility. Patient will increase fiber in her diet. Follow-up in 4 months, sooner on as needed basis. Patient is agreeable to this plan and verbalizes understanding of instructions. She was given the opportunity to ask questions and all questions answered. Thank you for allowing me to participate in her care Medications: New sennosides (Natural Senna Laxative) 17.2 mg (2 x 8.6 mg) PO BEDTIME 60 tabs 3RF constipation K59.00 - Constipation, unspecified cholecalciferol (vitamin D3) 50 mcg PO DAILY 90 caps 3RF R79.89 - Other speci fied abnormal findings of blood chemistry Discontinued bisacodyl (Dulcolax (bisacodyl)) Discontinued Reason: Doctor's Order 10 mg (2 x 5 mg) PO BEDTIME 60 tabs 4RF Coding Level of Care Code Est Pt Level 4 (36269) Complex EM visit Add On G2211 Diagnoses Gastroesophageal reflux disease without esophagitis K21.9 Esophagitis presence: without esophagitis Nausea and vomiting, unspecified vomiting type R11.2 Vomiting type: unspecified Nausea presence: with nausea H. pylori infection A04.8 Status post laparoscopic cholecystectomy Z90.49 Postprandial abdominal bloating R14.0 Slow transit constipation K59.01 Constipation type: slow transit constipation Time Spent (min) 40 Comment 25 minutes spent with patient and additional 15 minutes spent reviewing her records
[2025-03-04 10:34] VITALS: BP 102/62; PULSE 82; O2SAT 100; BMI 26.4
--- OUTSIDE RECORDS SUMMARY | 2025-03-04 11:47 | XMS_ITS | Encounter Summary ---
Author Organization [facility] Address [address] [place] [address] Phone Care Team Providers Care Truck Driver Supervisor Name Role Phone AyanRiana CNM Unavailable Chris Roy MD Unavailable Heena Mccullough NP Unavailable [phone] Josette Kwok CNM Unavailable [phone] Verónica Robb MD Unavailable Arnulfo Alexander MD Unavailable [phone] Shantelle Oliveira MD Unavailable [phone] Pcp, Unknown Primary Care Provider Unavailabl e Unknown, Unknown Primary Care Provider Prerna Blunt PAPER GLUING OPERATOR Primary Care Provider Verónica Robb MD Unavailable Carolina Dobson Primary Care Provide r Encounter Details Date Type Department Care Team (Late st Contact Info) Description 03/23/2020 Transcribe Orders [facility] Specimen Processing [address] [place], [place] [id number] Pcp, Unknown Social History Tobacco Use Types Packs/Day Years Used Date Smoking Tobacco: Never Smokeless Tobacco: Never Alcohol Use Standard Drinks/Week Comments Yes 0 (1 standard drink = 0.6 oz pur e alcohol) occasional Comments No Sex and Gender Information Value Date Recorded Sex Assigned at Female 10/11/2017 12:21 PM EDT Legal Sex Female 8:51 PM EDT Gender Identity Female 10/11/2017 12:21 PM EDT Sexual Orientation Straight 10/11/2017 12 :21 PM EDT 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 Not on file Not on file documented as of this encounter Plan of Treatment Not on file documented as of this encounter Visit Diagnoses Not on filedocumented in this encounter Additional Health Concerns Infection Onset Date Last Indicated Resolved Time CoV-Risk 04/03/2024 04/03/2024 04/14/2024 1:22 AM EDT documented as of this encounter Care Teams Truck Driver Supervisor Relationship Specialty Start Date End Date Pcp, Unknown PCP - General 03/20/20 03/27/20 Unknown, Unknown, PCP - General 03/28/20 02/25/23 Prerna Dickinson NP [address] [place] [address] [email or web address] PCP - General Nurse Practitioner 02/26/23 07/30/24 Carolina Dobson PA [address] [place] [address] PCP - General Physician Histology Supervisor 07/31/24 Riana Botello CNM [address] [place] [address] [email or web address] Historical LMR Provider 05/04/17 Chris Roy MD [address] [place] [address] Historical LMR Provider 05/04/17 Heena Mccullough NP [address] [place] [address] [email or web address] Historical LMR Provider 05/04/17 07/24/21 SundarAnelJosetteandres Leon CNM [address] [address] Historical LMR Provider 05/04/17 03/27/20 Verónica Robb MD [address] [address] Historical LMR Provider 05/04/17 03/27/20 Arnulfo Alexander MD [address] [place] [address] Historical LMR Provider 05/04/17 03/27/20 Shantelle Oliveira MD [address] [place] [address] Historical LMR Provider 05/04/17 0 Verónica Robb MD [address] [place] [address] Obstetrics and Gynecology 03/13/24 documented as of this encounter Additional Source Comments The information contained in this document represents components of the legal health record. It is not the complete legal health record.[facility]
== END 2025-03-04 10:46 | disposition home or self-care (01) ==
LOC: HO.HGI 10:27
PROVIDERS: PCP Physician Assistant Medical; Visit Provider Nurse Practitioner Family
DX: K21.9 Gastro-esophageal reflux disease without esophagitis (principal); R11.2 Nausea with vomiting, unspecified; A04.8 Other specified bacterial intestinal infections; Z90.49 Acquired absence of other specified parts of digestive tract; R14.0 Abdominal distension (gaseous); K59.01 Slow transit constipation
CPT/HCPCS: 99214

== ENCOUNTER → 2025-03-04 10:26 | Outpatient (BNVA) | payer OTHER, SELFPAY | PROVIDERS: PCP Physician Assistant Medical; Visit Provider Nurse Practitioner Family | DX: K21.9 Gastro-esophageal reflux disease without esophagitis (principal); R11.2 Nausea with vomiting, unspecified; A04.8 Other specified bacterial intestinal infections; Z90.49 Acquired absence of other specified parts of digestive tract; R14.0 Abdominal distension (gaseous); K59.01 Slow transit constipation; R79.89 Other specified abnormal findings of blood chemistry | CPT/HCPCS: 99212 ==

== ENCOUNTER 2025-05-12 09:21 | Outpatient (REF) | payer OTHER, SELFPAY ==
--- NOTE | ~2025-05-12 | FL_ITS ---
EXAMINATION: XR UPPER GI SERIES WITH SMALL BOWEL CLINICAL INFORMATION: Gastroesophageal reflux disease without esophagitis. Patient loves spicy food. COMPARISON: None available. TECHNIQUE: Routine upper GI air contrast study was performed upright and lying position. FINDINGS: Following oral administration of thick barium and effervescent granules there is normal propagation of bolus from the oral cavity through the pharynx, esophagus into stomach without obstruction, narrowing or stricture. No extrinsic compression seen On placing patient supine there is a large gastroesophageal reflux without hiatal hernia. On placing patient supine and prone, the course, caliber and peristalsis of the stomach duodenal bulb and sweep is normal. The mucosal pattern of the stomach and duodenum is normal. There is increased gastric secretions but no ulceration or mucosal erosions. There is evidence of previous cholecystectomy with jimy in place. FLUOROSCOPY TIME: 2 minute 48 seconds DOSE AREA PRODUCT: 05/06/2012 uGy-m2 (microgray-meter squared) FL/FL upper GI w air w Ba Swallow IMPRESSION: Large gastroesophageal reflux without hiatal hernia. Increased gastric secretions suggestive of gastric acidity.. Electronically signed by: Juice Nugent MD 05/12/2025 09:58 AM EDT
--- OUTSIDE RECORDS SUMMARY | 2025-05-12 10:21 | XMS_ITS | Encounter Summary ---
Author Organization [facility] Address [address] [place] [address] Phone Care Team Providers Care Heart Doctor Name Role Phone Riana Botello CNM Unavailable Chris Roy MD Unavailable Prerna Dickinson NP Primary Care Provider Verónica Robb MD Unavailable Carolina Dobson Primary Care Provide r Encounter Details Date Type Department Care Team (Late st Contact Info) Description 03/06/2024 Procedure Pass OR Admitting Dept - Virtual Department [address] [place] [address] Social History Tobacco Use Types Packs/Day Years Used Date Smoking Tobacco: Never Smokeless Tobacco: Never Alcohol Use Standard Drinks/Week Comments Yes 0 (1 standard drink = 0.6 oz pur e alcohol) occasional1-2 monthly Education Answer Date Recorded Are you interested in more education? Not on breana e 11/11/2022 Are you concerned about learning? Not on file 11/11/2022 No 11/11/2022 No 11/11/2022 Digital Access Answer Date Recorded No 12/12/2022 No 12/12/2022 Reliable internet access at home? Not on file 12/12/2022 Device with a working camera? 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 Not on file Not on file documented as of this encounter Plan of Treatment Not on file documented as of this encounter Visit Diagnoses Not on filedocumented in this encounter Additional Health Concerns Infection Onset Date Last Indicated Resolved Time CoV-Risk 04/03/2024 04/03/2024 04/14/2024 1:22 AM EDT documented as of this encounter Care Teams Heart Doctor Relationship Specialty Start Date End Date Prerna Dickinson NP [address] [place] [address] [email or web address] PCP - General Nurse Practitioner 02/26/23 07/30/24 Carolina Dobson PA [address] [address] PCP - General Physician Websphere Administrator 07/31/24 Riana Botello CNM [address] [address] [email or web address] Historical LMR Provider 05/04/17 Chris Roy MD [address] [place] [address] [email or web address] Historical LMR Provider 05/04/17 Verónica Robb MD [address] [place] [address] [email or web address] Obstetrics and Gynecology 03/13/24 documented as of this encounter Additional Source Comments The information contained in this document represents components of the legal health record. It is not the complete legal health record.[facility]
--- OUTSIDE RECORDS SUMMARY | 2025-05-12 10:21 | XMS_ITS | Encounter Summary ---
Author Organization [facility] Address [address] [place] [address] Phone Care Team Providers Care Rolloff Truck Driver Name Role Phone AyanRiana CNM Unavailable Chris Roy MD Unavailable Heena Mccullough NP Unavailable [phone] Josette Kwok CNM Unavailable [phone] Verónica Robb MD Unavailable Arnulfo Alexander MD Unavailable [phone] Shantelle Oliveira MD Unavailable [phone] Pcp, Unknown Primary Care Provider Unavailabl e Unknown, Unknown Primary Care Provider Prerna Blunt STOVE TENDER Primary Care Provider Verónica Robb MD Unavailable Carolina Dobson Primary Care Provide r Encounter Details Date Type Department Care Team (Late st Contact Info) Description 03/23/2020 Transcribe Orders [facility] Specimen Processing [address] [place], [place] [phone] Pcp, Unknown Social History Tobacco Use Types [...] 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 Not on file documented as of this encounter Plan of Treatment Not on file documented as of this encounter Visit Diagnoses Not on filedocumented in this encounter Additional Health Concerns Infection Onset Date Last Indicated Resolved Time CoV-Risk 04/03/2024 04/03/2024 04/14/2024 1:22 AM EDT documented as of this encounter Care Teams Rolloff Truck Driver Relationship Specialty Start Date End Date Pcp, Unknown PCP - General 03/20/20 03/27/20 Unknown, Unknown, PCP - General 03/28/20 02/25/23 Prerna Dickinson NP [address] [place] [address] [email or web address] PCP - General Nurse Practitioner 02/26/23 07/30/24 Carolina Dobson PA [address] [place] [address] PCP - General Physician Second Rigger 07/31/24 Riana Botello CNM [address] [place] [address] [email or web address] Historical LMR Provider 05/04/17 Chris Roy MD [address] [place] [address] Historical LMR Provider 05/04/17 Heena Mccullough NP [address] [place] [address] [email or web address] Historical LMR Provider 05/04/17 07/24/21 SundarAnelJosetteandres Leon CNM [address] [address] Historical LMR Provider 05/04/17 03/27/20 Verónica Robb MD [address] [address] Historical LMR Provider 05/04/17 03/27/20 Arnulfo Alexander MD [address] [place] [address] Historical LMR Provider 05/04/17 03/27/20 Shantelle Oliveira MD [address] [place] [address] Historical LMR Provider 05/04/17 0 Verónica Robb MD [address] [place] [address] Obstetrics and Gynecology 03/13/24 documented as of this encounter Additional Source Comments The information contained in this document represents components of the legal health record. It is not the complete legal health record.[facility]
--- OUTSIDE RECORDS SUMMARY | 2025-05-12 10:21 | XMS_ITS | Encounter Summary ---
Author Organization [facility] Address [address] [place] [address] Phone Care Team Providers Care Plant Operations Coordinator Name Role Phone Riana Botello CNM Unavailable Chris Roy MD Unavailable Prerna Dickinson NP Primary Care Provider Verónica Robb MD Unavailable Carolina Dobson Primary Care Provide r Encounter Details Date Type Department Care Team (Late st Contact Info) Description 03/16/2023 Procedure Pass OR Admitting Dept - [facility] Department [address] [place] [address] Social History Tobacco Use Types Packs/Day Years [...] 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 on file Not on file documented as of this encounter Plan of Treatment Not on file documented as of this encounter Visit Diagnoses Not on filedocumented in this encounter Additional Health Concerns Infection Onset Date Last Indicated Resolved Time CoV-Risk 04/03/2024 04/03/2024 04/14/2024 1:22 AM EDT documented as of this encounter Care Teams Plant Operations Coordinator Relationship Specialty Start Date End Date Prerna Dickinson NP [address] [place] [address] [email or web address] PCP - General Nurse Practitioner 02/26/23 07/30/24 Carolina Dobson PA [address] [address] PCP - General Physician Internal Controls Manager 07/31/24 Riana Botello CNM [address] [address] [email or web address] Historical LMR Provider 05/04/17 Chris Roy MD [address] [place] [address] [email or web address] Historical LMR Provider 05/04/17 Verónica Robb MD [address] [place] [address] [email or web address] Obstetrics and Gynecology 03/13/24 documented as of this encounter Additional Source Comments The information contained in this document represents components of the legal health record. It is not the complete legal health record.[facility]
--- OUTSIDE RECORDS SUMMARY | 2025-05-12 10:21 | XMS_ITS | Clinical Summary ---
Author Organization [facility] Address [address] [place] [id number] Phone Care Team Providers Care Jewelry Internship Name Role Phone Riana Botello CNM Unavailable Chris Roy MD Unavailable Verónica Robb MD Unavailable Carolina Dobson Primary Care Provide r Allergies Active Allergy Reactions Criticality Noted Date Comments Latex Itching 03/06/2024 Medications multivit-min/shilpa evelyn fumarate (MULTI VITAMIN ORAL) Take by mouth daily. Active cyclobenzaprine (FLEXERIL) 5 MG tablet Take 1 tablet (5 mg total) by mouth 3 (three) times a day as needed (right upper back spasming). 10 tablet 07/31/2024 Active Active Problems Problem Noted Date Diagnosed Date Endometrial polyp 06/05/2024 Encounter for IUD insertion 06/05/2024 Painful orthopaedic hardware 11/18/2023 Closed avulsion fracture of metatarsal bone of r ight foot 03/13/2023 History of shoulder dystocia in prior 05/25/2020 Overview (11/23/2020): With P1, per delivery record 1 min 15 seconds, resolved with Fuentes with suprapubic pressure. [place] born healthy without injury No SD with P2 Needs counseling for delivery - done 07/23/20 Assessment & Plan (07/23/2020 3:25 PM EST): -Counseled pt on the risk of recurrence is estimated at 10% for ea. Subsequent . There are no known reliable risk factor that could accurately predict the risk of recurrence. We will monitor EFW and maternal risk factors such as GDM and GA. Shoulder dystocia cannot be accurately predicted or prevented. Most cases occur in women with no risk factors. All questions were answered. History of gestational diabetes mellitus (GDM) 1 Overview (09/15/2020): Early 1hr gtt 104 28wk GTT- 150 3 hour wnl (88/138/122/124) Assessment & Plan (2020 11:21 AM EST): Reviewed early 1hr gtt result was normal. Will do routine 28wk labs today. Assessment & Plan (07/23/2020 2:36 PM EST): -Ordered early gtt. Resolved Problems Problem Noted Date Diagnosed Date Resolved Date Acetaminophen overdose, acci dental or unintentional, initial encounter 06/01/2023 024 Assessment & Plan (06/01/2023 11:48 PM EST): ED discussed the case with poison control. She is on N-acetylcysteine protocol. Pain, dental 06/01/2023 04/08/2024 Assessment & Plan (06/01/2023 11:49 PM EST): Patient needs tooth pulled or root canal. This will need to be done as an outpatient. Pap smear for cervical cancer screening 03/29/2021 08/31/2021 Assessment & Plan (04/07/2021 5:03 PM EDT): - Insufficient cells on last pap. Here for repeat pap. Normal intrauterine , antepartum 12/06/2020 03/10/2021 Uterine fibroid complicating care, baby not yet delivered in third trimester 12/04/2020 03/10/2021 Overview (12/04/2020): Increased risk of pph. IV in labor. Active management of 3rd stage of labor. Decreased movements in third trimester 03/10/2021 Candidiasis of vagina 10/09/20202020 Assessment & Plan (10/09/2020 10:32 AM EDT): Eloy c/o increase vag. Whitish-yellowish Discharge/itching/and slight odor. States she has yeast all the time during pregnancies and that this feels like yeast. Microscopic wet-mount exam shows MELQUIADES done, hyphae, vaginal pH is 5.0. -Wet mount + for yeast. -Pt advised to avoid douching, wear cotton underwear, decrease tub baths, and wear loose fitting pants. Change soaps and laundry detergents to odorless/colorless/sensitive skin formulations. -Pt advised on Rx sent to the pharmacy Encounter for supervision of other normal , third trimester 05/25/2020 03/10/2021 Overview (12/04/2020): CNM OB-CMI score = 0 [09/09/20] Rh pos GC/Chlam neg PAP 12/2017 NILM Tdap Done Flu declined Hgb 11.1 Early 1hr gtt 104 28 wk GTT 150- 3 hour wnl 28 wk Repeat RPR neg GBS neg PPBC: Wants IUD PP 6-8wks screening low-risk ERA Assessment & Plan (12/04/2020 2:22 PM EDT): Eloy is a 25yo @ 40+5wks today. Reports feeling +fm, no lof, vb, and some irregular contractions. States she had to be induced/augmented with her other kids d/t srom. She is hoping she can be induced because she is tired. States she has some contractions but they have not progressed into labor. Has good support from partner and family. BPP done today 02/21. Placenta grade 2-3. 6cm left lateral fibroid noted. We discussed warnings and when/how to contact provider. Third trimester comforts. Membranes swept. Next available IOL on 12/09. Order placed, patient aware. Assessment & Plan (11/27/2020 9:26 AM EDT): Eloy is a 25yo at 39 5/7 weeks. Tired, ready to be done. Baby moving well today. Was seen at hospital earlier this week for DFM, no issues since then. Has had irregular contractions and irregular pelvic pressure. Reports with last two, had PROM and then needed to be induced. Instructed to call with ROM or signs of labor. Knows how to reach CNM in labor. Will schedule DENA and BPP in one week in case not yet delivered. Assessment & Plan (11/20/2020 4:21 PM EDT): Eloy is a 25 y.o. at 38w4d states she feels well today. Denies any concerns at this time. Reports feeling fatigued and ready to have her baby. Denies any LOF/Vaginal bleeding/Ucs. Reports abundance of FM -Discussed FM at this GA and FKC -VE /2 membranes swept -Review signs and symptoms of Labor and when/how to contact midwives -Reviewed end of discomforts and comfort measures. -We discussed PP BC. At this time pt chooses IUD. We discussed that the ideal time for IUD insertion is 6-8 weeks PP. Advised that we do not due immediate PP IUDs at this hospital. Also discussed the risk of expelling it is greater the sooner the IUD is placed. Assessment & Plan (11/15/2020 6:28 PM EDT): Eloy is doing ok today- just very tired as she is not sleeping well. Reviewed strategies to increase/improve sleep. She reports adequate fluid intake. Eloy has not been feeling as much movement as she had been - states she only feels the baby once or twice a day. NST done: 150, mod mya, +accels, no decels- reactive. Eloy reports feeling more movement during monitoring. We discussed importance of calling with decreased movement. [facility] reviewed. Assessment & Plan (11/05/2020 1:33 PM EDT): Eloy is doing alright today- very uncomfortable with the baby sitting low in pelvis. She denies regular contractions or leaking fluid. We reviewed importance of feeling daily movement. Reviewed when to call. Will return in one week. GBS sent today. Assessment & Plan (10/09/2020 10:29 AM EDT): Eloy is a 25 y.o. at 32w4d states she feels well today. Denies any concerns at this time. Denies any LOF/Vaginal bleeding/Ucs. Reports +FM -Discussed FM at this GA and FK -Review signs and symptoms of Pre-term Labor and when/how to contact midwives -2nd trimester labs reviewed. -Tdap given -Advised on PP BC/ IUD cannot be done in the hospital. Discussed benefits in waiting for 6-8wk PP -NV in 4 weeks Assessment & Plan (2020 11:24 AM EST): DENA at 28 4/7 weeks. Feeling well. Had some abdominal discomfort recently that resolved. Active baby. 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 Reviewed negative screening results. Will go to lab after appointment for 28 week labs. Has a family member with a BP cuff - she will bring to next appt to have it verified for accuracy. DENA in four weeks. Assessment & Plan (08/20/2020 1:32 PM EST): Eloy is doing well today. She is feeling regular movement. No questions/concerns. Reviewed recommendation to repeat GTT at 28wks as first GTT was done before 24wks. She agrees with plan. Will return in 4 weeks for visit and labs. Assessment & Plan (07/23/2020 3:27 PM EST): -Pt feels well. No concerns in today's visit - Reviewed anatomy scan - RTO in 4 weeks Right ovarian cyst 04/06/2020 4 Overview (01/29/2021): 7 cm, some septations when 6 1/7 weeks . Repeat US at 12 weeks shows decrease to 3.5 cm. Patient no longer with sxs. 01/29/21 US at 8 wks PP normal Assessment & Plan (04/07/2021 6:21 PM EDT): -Cont to have occasional R sided pelvic pain. Advised on possible etiologies such as ovarian cyst, fibroids, or infection -F/U US order to evaluate R side pain -Gc/Ct ordered Assessment & Plan (01/29/2021 11:10 AM EDT): US today normal. No ovarian cysts seen. Assessment & Plan (04/06/2020 3:49 PM EDT): Will order repeat in a few weeks (to recheck a low FHR as well) care following vaginal delivery 06/10/2018 04/06/2020 Normal intrauterine , antepartum 06/08/2018 06/10/2018 Full-term premature rupture of membranes 06/08/2018 06/10/2018 Overview (06/10/2018): 06/08/18 1600 : SROM for clear fluid at 1300 SSE: + pool, nitrazine pos, fern pos FHR: 130s, mod mya, + accels, no decel Loami: ctxs q 2-4 min, mild SVE def 1930 Irregular ctxs, tolerating well FHR: 130s, mod mya, + accels, no decel Loami: ctxs q 2-4 min SVE def until more uncomfortable 2230 Was able to rest, ctxs are feeling more uncomfortable, SVE def for now 06/09 0200 expectant management SVE def 0430 Still resting, occasional ctx noted SVE def until more uncomfortable or if deciding to induce 0800 SVE 4/60/-2, Pitocin IOL 1400 SVE 4/60/-2, epidural 2100 SVE 6/80/-1 06/10/18 0300 SVE 7-8/90/-1 06/10/2018 07:50 SVE 8cm thick along back, no cervix anteriorly/ 80/-2 ROP Pit off since 5:30 due to prolonged decel. Now FH 130's mod variability, + accels IUPC placed, UCs 3-5 min, 40-50 mmHG 06/10/18 10:15 Pit resumed at 7:50, adequate contractions since 8:45 FH 130's mod variability Cat 1 Assessment & Plan (06/10/2018 3:12 AM EST): A: - Active labor - PROM > 24 hrs, clear fluid - GBS pos - Cat II tracing - Diet controlled GDM - H/O Shoulder dystocia with first (required Fuentes and Subprapubic) P: - Continue PCN for GBS prophylaxis - Continue to titrate Pitocin, currently at 4 - Limit SVE d/t PROM, but consider repeat in 4-6 hours or if pt having pressure/urge to push - Anticipate NSVB Group beta Strep positive 05/17/2018 Overview (05/21/2018): Reviewed need for abx with patient Diet controlled gestational diabetes mellitus (GDM) in third trimester 04/03/2018 05/13/2020 Overview (04/16/2018): Elevated 3 hour Initial education with CEDE completed. Is testing sugars. All normal with dietary changes. SILVER (amniotic fluid index) increased 02/07/2018 03/23/2018 Overview (03/23/2018): Repeat sono on 03/23/2018 showed SILVER WNL Supervision of high risk pre gnancy in third trimester 10/26/2017 04/06/2020 Overview (05/21/2018): CNM Rh A+ Tdap 04/06/18 Flu- 05/21/18 Hgb 11.2 GTT 147, elevated 3 hour, GDM GBS positive PPBC IUD Chart reviewed 04/24/18 GL History of shoulder dystocia in prior , currently 10/26/2017 06/10/2018 Overview (05/14/2018): Resolved w/ fuentes and suprapubic pressure- 7#9oz baby Counseling: recurrence risk 10% but cannot reliably predict Offer planned . Long discussion today about risk of recurrence and risks to baby of shoulder dystocia and also risk and benefit of planned section. Eloy would like ultrasound at 36 weeks for growth and if normal, vaginal delivery. Plan to have MD and pedi in room. 05/14/18 - growth US SILVER 8 and growth at 33%ile, vtx. Pt reports normal FBSs and rare BS over 120 in the past few wks. States she is trying to get regular exercise/walking. Immunizations Immunization Administration Dates Next Due Influenza Quadrivalent Preservative Free IM 11/2017,06/22/2015 Tdap 10/08/2020,04/06/2018 Family History Medical History Relation Comments No Known Problems Brother 1 No Known Problems Brother 2 No Known Problems Brother 3 No Known Problems Brother 4 No Known Problems Sister 1 No Known Problems Sister 2 No Known Problems Sister 3 Relation Status Comments Brother 1 Alive Brother 2 Alive Brother 3 Alive Brother 4 Father Alive Maternal Grandfather Maternal Grandmother Alive Mother Alive Paternal Grandfather Paternal Grandmother Alive Sister 1 Alive Sister 2 Alive Sister 3 Alive Social History Tobacco Use Types Packs/Day Years Used Date Smoking Tobacco: Never Smokeless Tobacco: Never Tobacco Cessation:Counseling Given: Not Answered Alcohol Use Standard Drinks/Week Comments Yes 0 [...] with a working camera? Not on file Intimate Partner Violence Answer Date R ecorded Are you denied basic needs s uch as food, clothing, or medical care? No 07/31/2024 In the past 12 months have y ou been in a relationship with a person who hurts, threatens, or tries to control you? No 07/31/2024 Are you denied basic needs s uch as food, clothing, or medical care? No 07/31/2024 In the past 12 months have y ou been in a relationship with a person who hurts, threatens, or tries to control you? 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 Not on file Not on file Last Filed Vital Signs Vital Sign Reading Time Taken Comments Blood Pressure 107/66 07/31/2024 2:16 PM EST Pulse 71 07/31/2024 2:16 PM EST Temperature 36.4 C (97.5 F) 07/31/2024 2:16 PM EST Respiratory Rate 16 07/31/2024 2:16 PM EST Oxygen Saturation 100% 07/31/2024 2:16 PM EST Inhaled Oxygen Concentration - - Weight 76.5 kg (168 lb 11.2 oz) 025 11:41 AM EST Height 154.9 cm (5' 1 ) 07/31/2024 11:4 1 AM EST Body Mass Index 31.88 07/31/2024 11:41 AM EST Plan of Treatment Health Maintenance Due Date Last Done Comments DEPRESSION SCREENING 2007 INFLUENZA VACCINE (#1) 2025 05/21/2018, 2014 COVID-19 VACCINE ( season) 2025 12/09/2021, 06/15/2021, 05/18/2021 PAP SMEAR 12/18/2026 12/19/2023, 03/17, 01/29/2021, Additional history exists Adult Td,Tdap Booster 10/08/2030 10/08/2020, 018 IUD 06/05/2034 06/05/2024 HEPATITIS C SCREENING Completed 08/26/2022 , 08/26/2022, 05/25/2020, Additional history exists HIV ONE-TIME SCREENING (18-65 YEARS) Completed 08/26/2022 SMOKING STATUS SCREENING (Once After 26 Yrs) Completed 06/04/2024 HEPATITIS A VACCINES Aged Out No long er eligible based on patient's age to complete this topic HIB VACCINES Aged Out No longer eligi ble based on patient's age to complete this topic MENINGOCOCCAL VACCINES (ACWY) Aged Out No longer eligible based on patient's age to complete this topic MENINGOCOCCAL VACCINES (B) Aged Out N o longer eligible based on patient's age to complete this topic PNEUMOCOCCAL VACCINES (0-49 years) Aged Out No longer eligible based on patient's age to complete this topic Medical Devices Implanted Type Area Business Information Analyst Device Identifier Shelf Expiration Date Model / Serial / Lot Iud Implanted:2023 (Quantity not on file) Intrauterine Device Plate Hook Compression Jmf 6 Hole Right - [id number] Implanted:Qty: 1 on 03/16/2023 by Adama Rebolledo MD at [facility] Right: Foot [employer] [id number] / / Screw Non Locking Bg 2.5x12mm - [id number] Implanted:Qty: 1 on 03/16/2023 by Adama Rebolledo MD at [facility] Right: Foot [employer] [id number] / / Screw Non Locking Bg 2.5x10mm - [id number] Implanted:Qty: 1 on 03/16/2023 by Adama Rebolledo MD at [facility] Right: Foot [employer] [id number] / / Screw Bone 2.5x14mm Mini Gorilla Locking - [id number] Implanted:Qty: 1 on 03/16/2023 by Adama Rebolledo MD at [facility] Right: Foot [employer] [id number] / / Device Contraceptive [id number] Intrauterine Paragard T 380a Copper Polyethylene Barium Sulfate Insertion Tube - [facility] [id number] Implanted:Qty: 1 on 06/05/2024 by Arnulfo Alexander MD at [facility] N/A: Uterus [employer] DIRECT 10/15/2029 [id number] / [facility] [id number] / [id number] Explanted Type Area Business Information Analyst Device Identifier Shelf Expiration Date Model / Serial / Lot Iud Intrauterine Device Procedures Procedure Name Priority Date/Time Associated Diagnosis Comments PAP TEST Routine 12/19/2023 12:00 AM EDT HEPATITIS C ANTIBODY, QUALITATIVE Routine 08/26/2022 12:20 PM EST Encounter for gynecological examination without abnormal finding from Last 3 Months or Most Recently Relevant to Health Maintenance Results * Pap Test (12/19/2023 12:00 AM EDT) Report [address] [address] Proposal Analyst: Veronica Eugene MD [employer] A [employer]UCK [employer]IVER Cytology Report FINAL DIAGNOSIS A. PAP SMEAR (THIN PREP) CE: SPECIMEN ADEQUACY: Satisfactory for evaluation; transformation zone absent/insufficient . INTERPRETATION: NEGATIVE FOR INTRAEPITHELIAL LESION OR MALIGNANCY. This specimen was analyzed by the automated ThinPrep Imaging System (TickPick Gerson.) and manually rescreened by a dozer operator and/or pathologist. Electronically Signed Out By: CASSIA Jean Baptiste(ASCP) The Pap test is a screening test primarily for squamous cancers and precursors and has associated false-negative and false-positive results. New technologies such as liquid-based preparations may decrease but will not eliminate all false-negative results. Regular sampling and follow-up of unexplained clinical signs and symptoms are recommended to minimize false negative results. CLINICAL HISTORY Date of Last Menstrual Period: 12-05-2023 Other Clinical Conditions: Screening Pap SPECIMEN SOURCE A: PAP SMEAR (THIN PREP) CE Patient Name: ELOY RAMACHANDRAN : 1995 (Age: 28) Sex: F Institution: [facility] Location: [facility] Date of Collection: 12/19/2023 Date of Reported: 12/26/2023 10:28 Results to: Verónica Robb MD [facility] Final Diagnosis A. PAP SMEAR (THIN PREP) CE: SPECIMEN ADEQUACY: Satisfactory for evaluation; transformation zone absent/insufficient . INTERPRETATION: NEGATIVE FOR INTRAEPITHELIAL LESION OR MALIGNANCY. This specimen was analyzed by the automated ThinPrep Imaging System (TickPick Gerson.) and manually rescreened by a dozer operator and/or pathologist. [facility] Conversion Type (Conversion Source) 12/19/2023 12/20/2023 11:13 AM EDT us Verónica Robb MD CYTOLOGY ORDERABLES Edited Resul t - Final [address] [address] * Hepatitis C antibody, qualitative (08/26/2022 12:20 PM EST) HCV NON-REACTIV E NON-REACTI VE [facility] Blood 08/26/2022 12:2 0 PM EST 08/26/2022 12:24 PM EST us Camila Nicolas CN LAB BLOOD ORDERABLES Final Result Performing Organization Address City/[facility] Co de Phone Number [address] [phone] from Last 3 Months or Most Recently Relevant to Health Maintenance Insurance [place] [address] [place] [address] [place] [address] [place] [address] [place] [place] [address] [facility] [facility] ACO Advance Directives For more information, please contact: [phone] (9AM - 5PM [facility], Monday-Monday) * Full Code (Latest Code Status on File) Date Activated Date Inactivated Comments 06/02/2023 1:01 AM Question Answer Comments Code Status Confirmed With: Patient * Full Code Date Activated Date Inactivated Comments 12/06/2020 11:14 PM 06/02/2023 1:01 AM Question Answer Comments Code Status Confirmed With: Patient * Full Code Date Activated Date Inactivated Comments 12/06/2020 7:44 PM 12/06/2020 11:14 PM Question Answer Comments Code Status Confirmed With: Patient * Full Code (Presumed) Date Activated Date Inactivated Comments 06/10/2018 1:12 PM 06/12/2018 3:36 PM * Full Code (Presumed) Date Activated Date Inactivated Comments 06/08/2018 3:56 PM 06/10/2018 1:12 PM Care Teams Jewelry Internship Relationship Specialty Start Date End Date Carolina Dobson PA [address] [place] [phone] PCP - General Physician Cooler Tender 07/31/24 Riana Botello CNM [address] [place] [address], [address] [address] [email or web address] Historical LMR Provider 05/04/17 Chris Roy MD [address] [place] [id number] Historical LMR Provider 05/04/17 Verónica Robb MD [address] [place] [phone] Obstetrics and Gynecology 03/13/24 Additional Source Comments The information contained in this document represents components of the legal health record. It is not the complete legal health record.[facility]
--- OUTSIDE RECORDS SUMMARY | 2025-05-12 10:21 | XMS_ITS | Encounter Summary ---
Author Organization [facility] Address [address] [place] [address] [place] [address] Phone Care Team Providers Care Research Programmer Name Role Phone Riana Botello CNM Unavailable Chris Roy MD Unavailable Prerna Dickinson NP Primary Care Provider Verónica Robb MD Unavailable Carolina Dobson Primary Care Provide r Encounter Details Date Type Department Care Team (Late st Contact Info) Description 06/05/2024 Procedure Pass [place] Admitting Dept - Virtual Department [address] [place] [address] Social History Tobacco Use Types Packs/Day Years [...] as food, clothing, or medical care? No 04/03/2024 In the past 12 months have y ou been in a relationship with a person who hurts, threatens, or tries to control you? No 04/03/2024 Are you denied basic needs s uch as food, clothing, or medical care? No 04/03/2024 In the past 12 months have y ou been in a relationship with a person who hurts, threatens, or tries to control you? 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 Not on file Not on file documented as of this encounter Plan of Treatment Not on file documented as of this encounter Visit Diagnoses Not on filedocumented in this encounter Care Teams Research Programmer Relationship Specialty Start Date End Date Prerna Dickinson NP [address] [place] [phone] [email or web address] PCP - General Nurse Practitioner 02/26/23 07/30/24 Carolina Dobson PA [address] [place] [id number] PCP - General Physician Tile Setter Supervisor 07/31/24 Riana Botello CNM [address] [place] [phone] [email or web address] Historical LMR Provider 05/04/17 Chris Roy MD [address] [place] [address] Historical LMR Provider 05/04/17 Verónica Robb MD [address] [place], [place] [address], [place] [address] [email or web address] Obstetrics and Gynecology 03/13/24 documented as of this encounter Additional Source Comments The information contained in this document represents components of the legal health record. It is not the complete legal health record.[facility]
--- OUTSIDE RECORDS SUMMARY | 2025-05-12 10:21 | XMS_ITS | Encounter Summary ---
Author Organization [facility] Address [address] [place] [address] Phone Care Team Providers Care Adding Machine Operator Name Role Phone Riana Botello CNM Unavailable Chirs Roy MD Unavailable Prerna Dickinson NP Primary Care Provider Verónica Robb MD Unavailable Carolina Dobson Primary Care Provide r Encounter Details Date Type Department Care Team (Latest Contact Info) Description 03/21/[address] [facility] Orthopedics & Sports Medicine [address] [place] [phone] Pilar Dow PA-C [address] [place] [address] Orthopedics & Sports Medicine, [facility] [place] [address] [email or web address] Right ankle pain (Primary Dx) Social History Tobacco Use Types Packs/Day Years [...] Industry Job Start Date Job End Date [employer] Not on file Not on file Not on file documented as of this encounter Plan of Treatment Not on file documented as of this encounter Results * XR FOOT 3 OR MORE VIEWS (RIGHT) (03/21/2024 2:14 PM EDT) Narrative SYSTEMGENERATED, DOCUMENTATION - 03/21/2024 2:14 PM EDT This image report has been auto-finalized and has not been read by a Radiologist. Interpretation has been included in the provider encounter note for this date of service. Pilar Dow PA-C IMG XR LOWER EXTREMITY F inal Result documented in this encounter Visit Diagnoses Diagnosis Right ankle pain Pain in joint, ankle and foot Right ankle pain- Primary Pain in joint, ankle and foot documented in this encounter Additional Health Concerns Infection Onset Date Last Indicated Resolved Time CoV-Risk 04/03/2024 04/03/2024 04/14/2024 1:22 AM EDT documented as of this encounter Care Teams Adding Machine Operator Relationship Specialty Start Date End Date Prerna Dickinson NP [address] [place] [address] [email or web address] PCP - General Nurse Practitioner 02/26/23 07/30/24 Carolina Dobson PA [address] [place] [phone] PCP - General Physician Rheumatology Nurse 07/31/24 Riana Botello CNM [address] [place] [address] [email or web address] Historical LMR Provider 05/04/17 Chris Roy MD [address] [place] [address] Historical LMR Provider 05/04/17 Verónica Robb MD [address] [place] [phone] [email or web address] Obstetrics and Gynecology 03/13/24 documented as of this encounter Additional Source Comments The information contained in this document represents components of the legal health record. It is not the complete legal health record.[facility]
--- OUTSIDE RECORDS SUMMARY | 2025-05-12 10:21 | XMS_ITS | Encounter Summary ---
Author Organization [facility] Address [address] [place] [address] Phone Care Team Providers Care Transportation Clerk Name Role Phone Riana Botello CNM Unavailable Chris Roy MD Unavailable Heena Mccullough NP Unavailable [phone] Unknown, Unknown Primary Care Provider Prerna Blunt NP Primary Care Provider Verónica Robb MD Unavailable Carolina Dobson Primary Care Provide r Encounter Details Date Type Department Care Team (Late st Contact Info) Description 04/24/2021 Procedure Pass [facility], Ct Scan - [address] [id number] Social History Tobacco Use Types Packs/Day Years Used Date Smoking Tobacco: Never Smokeless Tobacco: Never Alcohol Use Standard Drinks/Week Comments Not Currently 0 (1 standard drink = 0.6 oz pur e alcohol) occasional Comments No Sex and Gender Information Value Date Recorded Sex Assigned at Female 10/11/2017 12:21 PM EDT Legal Sex Female 8:51 PM EDT Gender Identity Female 10/11/2017 12:21 PM EDT Sexual Orientation Straight 10/11/2017 12 :21 PM EDT Occupation Industry Job Start Date Job End Date [employer] Not on file Not on file Not on file documented as of this encounter Plan of Treatment Not on file documented as of this encounter Visit Diagnoses Not on filedocumented in this encounter Additional Health Concerns Infection Onset Date Last Indicated Resolved Time CoV-Risk 04/03/2024 04/03/2024 04/14/2024 1:22 AM EDT documented as of this encounter Care Teams Transportation Clerk Relationship Specialty Start Date End Date Unknown, Unknown, [address] [place] [address] PCP - General 03/28/20 02/25/23 Prerna Dickinson NP [address] [place] [address] [email or web address] PCP - General Nurse Practitioner 02/26/23 07/30/24 Carolina Dobson PA [address] [place] [phone] PCP - General Physician Reconciliation Coordinator 07/31/24 Riana Botello CNM [address] [place] [phone] Historical LMR Provider 05/04/17 Chris Roy MD [address] [place] [phone] Historical LMR Provider 05/04/17 Heena Mccullough NP [address] [place] [phone] [email or web address] Historical LMR Provider 05/04/17 07/24/21 Verónica Robb MD [address] [place] [phone] Obstetrics and Gynecology 03/13/24 documented as of this encounter Additional Source Comments The information contained in this document represents components of the legal health record. It is not the complete legal health record.[facility]
== END 2025-05-12 09:22 | disposition home or self-care (01) ==
LOC: HO.XRAY 09:21
PROVIDERS: PCP Physician Assistant Medical; Visit Provider Nurse Practitioner Family
DX: K21.9 Gastro-esophageal reflux disease without esophagitis (principal)
CPT/HCPCS: 74246

== ENCOUNTER → 2025-05-12 09:22 | Outpatient (BNV) | payer OTHER, SELFPAY | PROVIDERS: PCP Physician Assistant Medical; Visit Provider Radiology Diagnostic Radiology | DX: K21.9 Gastro-esophageal reflux disease without esophagitis (principal) | CPT/HCPCS: 74246 ==